=== PATIENT | female | born 1935 | race Caucasian/White ===

== ENCOUNTER 2017-03-22 16:00 | Inpatient (IN) | payer MEDICARE, MEDICAID ==
[2017-03-22 16:54] LABS: CHLORIDE,CL 106 mmol/L (98-107); SODIUM,NA 143 mmol/L (136-145)
--- NOTE | 2017-03-22 17:10 | EDM.PDOC ---
ED HPI GENERAL MEDICAL PROBLEM - General Chief Complaint: Neuro Symptoms/Deficits Stated Complaint: SROKE CODE Time Seen by Provider: 03/22/17 16:14 Source of Information: Reports: Patient History Limitations: Reports: Other (very poor with history, vague. ) - History of Present Illness INITIAL COMMENTS - FREE TEXT/NARRATIVE: Patient brought in by son via private vehicle with complaint of weakness in right arm. Denies any pain, in chest/arm/shoulder. No SOB. No sweating. No recent trauma or illness. Says her arm "doesn't move like I want it to move". When asked if she had any other weakness, she mentioned her legs. Initially she said that weakness was equal in both legs and was not new. She said this was long standing problem. Her son said that the leg weakness has gradually worsened and that his mother walks around the house looking like she might tip over. She denies this and says she walks a lot every day and she walks fine. Later when asked if she had specific weakness in the right leg she said "yes". I then asked about the other leg and she said that it was weak too. Patient very vague and nonspecific with answers during history and ROS. She said she has been to see her primary Henri Avila recently and he gave her pain medication for back pain. She seemed to link her leg weakness with the back issue. Could not recall any of her medications. No headache or visual changes. No history of stroke or arm weakness prior to this. - Related Data Home Meds: Home Meds Aspirin [Halfprin] 81 mg PO BRK 03/22/17 [History] Atenolol 50 mg PO BID 03/22/17 [History] Felodipine [Felodipine ER] 5 mg PO BEDTIME 03/22/17 [History] Furosemide [Lasix] 20 mg PO DAILY 03/22/17 [History] Pantoprazole [ProTONIX] 40 mg PO DAILY 03/22/17 [History] Quinapril HCl [Accupril] 40 mg PO DAILY 03/22/17 [History] atorvaSTATin [Lipitor] 10 mg PO BEDTIME 03/22/17 [History] cloNIDine [Catapres] 0.1 mg PO BEDTIME 03/22/17 [History] cloNIDine [Catapres] 0.1 mg PO DAILY 03/22/17 [History] ED ROS GENERAL - Review of Systems Review Of Systems: See Below Constitutional: Reports: No Symptoms HEENT: Reports: No Symptoms Respiratory: Reports: No Symptoms Cardiovascular: Reports: No Symptoms GI/Abdominal: Reports: No Symptoms : Reports: No Symptoms Musculoskeletal: Reports: Other (No acute changes from baseline) Skin: Reports: No Symptoms Neurological: Reports: Weakness (see HPI), Other (see HPI for chronic issues with walking). Denies: Confusion, Dizziness, Headache, Numbness, Paresthesia, Trouble Speaking, Change in Speech Psychiatric: Reports: No Symptoms ED EXAM, NEURO - Physical Exam Exam: See Below Exam Limited By: No Limitations General Appearance: Alert, WD/WN, No Apparent Distress Eye Exam: Bilateral Eye: EOMI, PERRL Ears: Normal External Exam, Other (Excess cerumen bilaterally noted. Hard to fully visualize TMs. ) Nose: No: Nasal Swelling, Nasal Drainage Throat/Mouth: Normal Inspection, Normal Lips, Normal Voice, No Airway Compromise Head Exam: Atraumatic, Normocephalic Neck: Normal Inspection, Supple, Non-Tender, Full Range of Motion Respiratory/Chest: No Respiratory Distress, Lungs Clear, Normal Breath Sounds, No Accessory Muscle Use Cardiovascular: Normal Peripheral Pulses, Regular Rate, Rhythm, No Murmur GI/Abdominal: Normal Bowel Sounds, Soft, Non-Tender, No Distention (Female) Exam: Deferred Rectal (Female) Exam: Deferred Neurological: Alert, Normal Mood/Affect, Normal Dorsiflexion, CN II-XII Intact, Normal Plantar Flexion, No Motor/Sensory Deficits, Oriented x 3, Other (Unable to check reflexes accurately as patient would not relax limbs and instead would always hold them out straight with muscle activation) Back Exam: Normal Inspection Extremities: Normal Range of Motion, Non-Tender, Normal Capillary Refill, Other (trace edema bilateral ankles. ) Psychiatric: Normal Affect, Normal Mood Skin Exam: Warm, Dry, Intact, Normal Color Comments: No sign of one-sided weakness noted during exam. EKG INTERPRETATION EKG Date: 03/22/17 Time: 16:22 Rhythm: NSR Rate (Beats/Min): 64 [place]: Normal P-Wave: Present QRS: LBBB ST-T: Normal QT: Normal Comparison: NA - No Prior EKG Course - Orders/Labs/Meds Orders: Active Orders 24 hr Category Date Time Status EKG Documentation Completion [RC] ASDIRECTED Care 03/22/17 16:16 Active Chest 1V Frontal [CR] Stat Exams 03/22/17 16:15 Ordered Head wo Cont [CT] Stat Exams 03/22/17 16:17 Taken PROLACTIN [REF] Stat Lab 03/22/17 16:00 Received Sodium Chloride 0.9% [Saline Flush] Med 03/22/17 16:15 Active 10 ml FLUSH ASDIRECTED PRN Saline Lock Insert [OM.PC] Stat Oth 03/22/17 16:15 Ordered Medication Orders Sodium Chloride (Saline Flush) 10 ml FLUSH ASDIRECTED PRN PRN Reason: Keep Vein Open Labs: Laboratory Tests 03/22/17 03/22/17 03/22/17 Range/Units 16:00 16:00 16:00 WBC 5.8 (4.0-10.2) K/uL RBC 4.83 (3.77-5.09) M/uL Hgb 14.7 (11.7-15.5) g/dL Hct 45.8 (34.0-46.0) % MCV 94.8 (84.0-98.0) fL MCH 30.4 (28.2-33.3) pg MCHC 32.1 (31.7-36.0) g/dL RDW 14.6 H (11.2-14.1) % Plt Count 208 (150-350) K/uL Neut % (Auto) 62.7 (45.0-80.0) % Lymph % (Auto) 23.2 (10.0-50.0) % Blaine % (Auto) 9.8 (2.0-14.0) % Eos % (Auto) 2.9 (0.0-5.0) % Baso % (Auto) 1.4 (0.0-2.0) % Neut # (Auto) 3.66 (1.40-7.00) K/uL Lymph # (Auto) 1.35 (0.50-3.50) K/uL Blaine # (Auto) 0.57 (0.00-1.00) K/uL Eos # (Auto) 0.17 (0.00-0.50) K/uL Baso # (Auto) 0.08 (0.00-0.20) K/uL PT 12.5 H (9.8-11.7) SEC INR 1.2 APTT (23.5-30.0) SEC D-Dimer, Quantitative (0-400) ng/mL Sodium 143 (136-145) mmol/L Potassium 3.9 (3.5-5.1) mmol/L Chloride 106 (98-107) mmol/L Carbon Dioxide 30.2 (21.0-32.0) mmol/L BUN 14 (7-18) mg/dL Creatinine 0.92 (0.51-1.17) mg/dL Est Cr Clr Drug Dosing TNP Estimated GFR (MDRD) 58 mL/min Glucose 102 (74-106) mg/dL Calcium 8.3 L (8.5-10.1) mg/dL Magnesium (1.8-2.4) mg/dL Total Bilirubin 0.8 (0.2-1.0) mg/dL AST 18 (15-37) U/L ALT 17 (12-78) U/L Alkaline Phosphatase 93 (46-116) IU/L Creatine Kinase 55 (26-308) U/L Creatine Kinase Index 1.1 (0.0-2.5) % CK-MB (CK-2) 0.60 (0.00-3.60) ng/mL Troponin I 0.011 (0.000-0.056) ng/mL Kny-Q-Vrnkjynrber Pept 594 H (0-125) pg/mL Total Protein 7.1 (6.4-8.2) g/dL Albumin 3.8 (3.4-5.0) g/dL Specimen Type Urine Color Urine Appearance Urine pH (5.0-9.0) Ur Specific [place] (1.005-1.030) Urine Protein (NEGATIVE) mg/dL Urine Glucose (UA) (NEGATIVE) mg/dL Urine Ketones (NEGATIVE) mg/dL Urine Occult Blood (NEGATIVE) Urine Nitrite (NEGATIVE) Urine Bilirubin (NEGATIVE) Urine Urobilinogen (0.2-1.0) E.U./dL Ur Leukocyte Esterase (NEGATIVE) Urine RBC /HPF Urine WBC /HPF Ur Epithelial Cells /LPF Urine Bacteria (NONE TO FEW) /HPF 03/22/17 03/22/17 03/22/17 Range/Units 16:00 16:00 16:00 WBC (4.0-10.2) K/uL RBC (3.77-5.09) M/uL Hgb (11.7-15.5) g/dL Hct (34.0-46.0) % MCV (84.0-98.0) fL MCH (28.2-33.3) pg MCHC (31.7-36.0) g/dL RDW (11.2-14.1) % Plt Count (150-350) K/uL Neut % (Auto) (45.0-80.0) % Lymph % (Auto) (10.0-50.0) % Blaine % (Auto) (2.0-14.0) % Eos % (Auto) (0.0-5.0) % Baso % (Auto) (0.0-2.0) % Neut # (Auto) (1.40-7.00) K/uL Lymph # (Auto) (0.50-3.50) K/uL Blaine # (Auto) (0.00-1.00) K/uL Eos # (Auto) (0.00-0.50) K/uL Baso # (Auto) (0.00-0.20) K/uL PT (9.8-11.7) SEC INR APTT 26.1 (23.5-30.0) SEC D-Dimer, Quantitative 473 H (0-400) ng/mL Sodium (136-145) mmol/L Potassium (3.5-5.1) mmol/L Chloride (98-107) mmol/L Carbon Dioxide (21.0-32.0) mmol/L BUN (7-18) mg/dL Creatinine (0.51-1.17) mg/dL Est Cr Clr Drug Dosing Estimated GFR (MDRD) mL/min Glucose (74-106) mg/dL Calcium (8.5-10.1) mg/dL Magnesium 1.9 (1.8-2.4) mg/dL Total Bilirubin (0.2-1.0) mg/dL AST (15-37) U/L ALT (12-78) U/L Alkaline Phosphatase (46-116) IU/L Creatine Kinase (26-308) U/L Creatine Kinase Index (0.0-2.5) % CK-MB (CK-2) (0.00-3.60) ng/mL Troponin I (0.000-0.056) ng/mL Nam-W-Fmgowumydlx Pept (0-125) pg/mL Total Protein (6.4-8.2) g/dL Albumin (3.4-5.0) g/dL Specimen Type Urine Color Urine Appearance Urine pH (5.0-9.0) Ur Specific [place] (1.005-1.030) Urine Protein (NEGATIVE) mg/dL Urine Glucose (UA) (NEGATIVE) mg/dL Urine Ketones (NEGATIVE) mg/dL Urine Occult Blood (NEGATIVE) Urine Nitrite (NEGATIVE) Urine Bilirubin (NEGATIVE) Urine Urobilinogen (0.2-1.0) E.U./dL Ur Leukocyte Esterase (NEGATIVE) Urine RBC /HPF Urine WBC /HPF Ur Epithelial Cells /LPF Urine Bacteria (NONE TO FEW) /HPF 03/22/17 Range/Units 16:43 WBC (4.0-10.2) K/uL RBC (3.77-5.09) M/uL Hgb (11.7-15.5) g/dL Hct (34.0-46.0) % MCV (84.0-98.0) fL MCH (28.2-33.3) pg MCHC (31.7-36.0) g/dL RDW (11.2-14.1) % Plt Count (150-350) K/uL Neut % (Auto) (45.0-80.0) % Lymph % (Auto) (10.0-50.0) % Blaine % (Auto) (2.0-14.0) % Eos % (Auto) (0.0-5.0) % Baso % (Auto) (0.0-2.0) % Neut # (Auto) (1.40-7.00) K/uL Lymph # (Auto) (0.50-3.50) K/uL Blaine # (Auto) (0.00-1.00) K/uL Eos # (Auto) (0.00-0.50) K/uL Baso # (Auto) (0.00-0.20) K/uL PT (9.8-11.7) SEC INR APTT (23.5-30.0) SEC D-Dimer, Quantitative (0-400) ng/mL Sodium (136-145) mmol/L Potassium (3.5-5.1) mmol/L Chloride (98-107) mmol/L Carbon Dioxide (21.0-32.0) mmol/L BUN (7-18) mg/dL Creatinine (0.51-1.17) mg/dL Est Cr Clr Drug Dosing Estimated GFR (MDRD) mL/min Glucose (74-106) mg/dL Calcium (8.5-10.1) mg/dL Magnesium (1.8-2.4) mg/dL Total Bilirubin (0.2-1.0) mg/dL AST (15-37) U/L ALT (12-78) U/L Alkaline Phosphatase (46-116) IU/L Creatine Kinase (26-308) U/L Creatine Kinase Index (0.0-2.5) % CK-MB (CK-2) (0.00-3.60) ng/mL Troponin I (0.000-0.056) ng/mL Jfs-Q-Vwzzgkovvmg Pept (0-125) pg/mL Total Protein (6.4-8.2) g/dL Albumin (3.4-5.0) g/dL Specimen Type Urinblad Urine Color Yellow Urine Appearance Clear Urine pH 7.0 (5.0-9.0) Ur Specific [place] 1.010 (1.005-1.030) Urine Protein Negative (NEGATIVE) mg/dL Urine Glucose (UA) Negative (NEGATIVE) mg/dL Urine Ketones Negative (NEGATIVE) mg/dL Urine Occult Blood Trace-intact H (NEGATIVE) Urine Nitrite Negative (NEGATIVE) Urine Bilirubin Negative (NEGATIVE) Urine Urobilinogen 0.2 (0.2-1.0) E.U./dL Ur Leukocyte Esterase Negative (NEGATIVE) Urine RBC 0-5 /HPF Urine WBC 0-5 /HPF Ur Epithelial Cells Rare /LPF Urine Bacteria Rare (NONE TO FEW) /HPF Meds: Medications Generic Name Dose Route Start Last Admin Trade Name Freq PRN Reason Stop Dose Admin Sodium Chloride 10 ml 03/22/17 16:15 Saline Flush FLUSH ASDIRECTED PRN Keep Vein Open - Radiology Interpretation Free Text/Narrative:: CT of head read by radiology and no acute changes noted. Small vessel changes/ disease observed. Chest film showed increased cardiac size, no acute infiltrates noted, no pneumo - Re-Assessments/Exams Free Text/Narrative Re-Assessment/Exam: 03/22/17 17:58 No focal neurologic findings noted on exam. Patient had been noted to have elevated systolic BP upon arrival. This improved relatively rapidly on its own. Patient also said her right arm was feeling better. There may be a connection to the BP and patient complaint. Son brought patient's meds to the ER. Patient did not wish to stay. She was highly encouraged to stay for continued monitoring for BP and any additional changes as well as neuro checks. Given the disparity between how she says she is able to move around and get along well at home versus her son's concerns for her ambulation, this will also give us a chance to observe her level of function. PT and OT consults as well as case management consult are planned. For now patient is in agreement although she has threatened to leave the hospital tomorrow. Son is also in agreement. Departure - Departure Time of Disposition: 17:09 Disposition: Admitted As Inpatient 66 Condition: Good Clinical Impression: Hypertensive urgency, Right arm weakness - Discharge Information - Problem List & Annotations (1) Osteoarthritis SNOMED Code(s): 819753574 Code(s): M19.90 - UNSPECIFIED OSTEOARTHRITIS, UNSPECIFIED SITE Status: Chronic Priority: Low Current Visit: No (2) Hypertension SNOMED Code(s): 98775200 Code(s): I10 - ESSENTIAL (PRIMARY) HYPERTENSION Status: Chronic Priority : High Current Visit: Yes Annotation/Comment:: Suspect that elevated systolic blood pressure may have been cause for patient's arm complaint. Will monitor BP trend while inpatient. Qualifiers: Hypertension type: unspecified Qualified Code(s): I10 - Essential (primary ) hypertension (3) Hypertensive urgency SNOMED Code(s): 418656248 Code(s): I16.0 - HYPERTENSIVE URGENCY Status: Acute Priority: High Current Visit: Yes (4) Right arm weakness SNOMED Code(s): 598823577 Code(s): R29.898 - [facility] SYMPTOMS AND SIGNS INVOLVING THE MUSCULOSKELETAL SYSTEM Status: Acute Priority: High Current Visit: Yes Onset Date: 03/22 Annotation/Comment:: Complaint of right arm weakness. Currently improved. Specific cause unclear. (5) GERD (gastroesophageal reflux disease) SNOMED Code(s): 589581089 Code(s): K21.9 - GASTRO-ESOPHAGEAL REFLUX DISEASE WITHOUT ESOPHAGITIS Status: Acute Priority: Low Current Visit: No (6) Dyslipidemia SNOMED Code(s): 180279046 Code(s): E78.5 - HYPERLIPIDEMIA, UNSPECIFIED Status: Chronic Priority: Low Current Visit: No (7) Lower extremity weakness SNOMED Code(s): 401434802 Code(s): R29.898 - OTH SYMPTOMS AND SIGNS INVOLVING THE MUSCULOSKELETAL SYSTEM Status: Chronic Priority: Medium Current Visit: Yes Annotation/ Comment:: Long standing issue per patient, overall worsening per son. Qualifiers: Laterality: bilateral Qualified Code(s): R29.898 - Other symptoms and signs involving the musculoskeletal system - Problem List Review Problem List Initiated/Reviewed/Updated: Yes - My Orders Last 24 Hours: My Active Orders 03/22/17 16:00 PROLACTIN [REF] Stat 03/22/17 16:15 Chest 1V Frontal [CR] Stat Sodium Chloride 0.9% [Saline Flush] 10 ml FLUSH ASDIRECTED PRN Saline Lock Insert [OM.PC] Stat 03/22/17 16:16 EKG Documentation Completion [RC] ASDIRECTED 03/22/17 16:17 Head wo Cont [CT] Stat - Assessment/Plan Admission H&P: Please use this note as an admission H&P Last 24 Hours: My Active Orders 03/22/17 16:00 PROLACTIN [REF] Stat 03/22/17 16:15 Chest 1V Frontal [CR] Stat Sodium Chloride 0.9% [Saline Flush] 10 ml FLUSH ASDIRECTED PRN Saline Lock Insert [OM.PC] Stat 03/22/17 16:16 EKG Documentation Completion [RC] ASDIRECTED 03/22/17 16:17 Head wo Cont [CT] Stat Assessment:: Complaint of right arm weakness, worsening bilateral lower extremity weakness. Hypertensive urgency noted in ER. Unremarkable head CT. Lab workup overall unremarkable. Low suspicion for stroke at this time but may need MRI evaluation. Weakness complaint improved as BP improved. Plan: Patient admitted for monitoring of BP as well as continued neuro checks. Will attempt to encourage her stay several days in order to have PT and OT evaluation patient's mobility and make recommendations as needed. Anticipate 2- 3 days inpatient stay.
[2017-03-22] MEDS ORDERED: Acetaminophen 325 MG Tab PO PRN (18:15)
[2017-03-22] MEDS: cloNIDine 0.1 MG Tab PO SCH (19:45)
[2017-03-22] MEDS: atorvaSTATin 10 MG Tab PO SCH (19:45)
[2017-03-22] MEDS: Aspirin 81 MG Tab.EC PO SCH (19:45)
[2017-03-22] MEDS: Atenolol 50 MG Tab PO ONE ×2 (19:46→19:55)
[2017-03-23] MEDS: Furosemide 20 MG Tab PO SCH (08:15)
[2017-03-23] MEDS: cloNIDine 0.1 MG Tab PO SCH ×2 (08:15→19:35)
[2017-03-23] MEDS: Aspirin 81 MG Tab.EC PO SCH (08:15)
[2017-03-23] MEDS: Pantoprazole 40 MG Tab.CR PO SCH (08:15)
[2017-03-23] MEDS: Atenolol 50 MG Tab PO SCH ×2 (09:51→17:43)
--- NOTE | 2017-03-23 10:37 | PCM.PN ---
- General Info Date of Service: 03/23/17 Admission Dx/Problem (Free Text): Right arm weakness. Increased weakness of both legs. Subjective Update: Patient has not felt recurrence of right arm weakness. Feels that her legs are stronger today. Expresses interest in going home. Functional Status: Reports: Pain Controlled, Tolerating Diet, Ambulating, Urinating. Denies: New Symptoms - Review of Systems General: Reports: No Symptoms HEENT: Reports: No Symptoms Pulmonary: Reports: No Symptoms Cardiovascular: Reports: No Symptoms Gastrointestinal: Reports: No Symptoms Genitourinary: Reports: No Symptoms Musculoskeletal: Reports: No Symptoms Skin: Reports: No Symptoms Neurological: Reports: No Symptoms Psychiatric: Reports: No Symptoms - Patient Data Vitals - Most Recent: Last Vital Signs Temp 36.6 C 03/23/17 08:00 Pulse 58 L 03/23/17 08:00 Resp 17 03/23/17 08:00 BP 165/71 H 03/23/17 08:16 Pulse Ox 95 03/23/17 00:00 Weight - Most Recent: 69.4 kg I&O - Last 24 Hours: Intake & Output 03/22/17 03/23/17 03/23/17 22:59 06:59 14:59 Intake Total 120 240 Output Total 500 200 Balance -380 -200 240 Med Orders - Current: Current Medications Acetaminophen (Tylenol) 650 mg PO Q4H PRN PRN Reason: analgesia/fever Aspirin (Halfprin) 81 mg PO BRK [facility] Last Admin: 03/23/17 08:15 Dose: 81 mg Atenolol (Tenormin) 50 mg PO BID@0800,1830 [facility] Last Admin: 03/23/17 09:51 Dose: Not Given Atorvastatin Calcium (Lipitor) 10 mg PO BEDTIME [facility] Last Admin: 03/22/17 19:45 Dose: 10 mg Clonidine HCl (Catapres) 0.1 mg PO BEDTIME [facility] Last Admin: 03/22/17 19:45 Dose: 0.1 mg Clonidine HCl (Catapres) 0.1 mg PO DAILY [facility] Last Admin: 03/23/17 08:15 Dose: 0.1 mg Felodipine (Felodipine Er) 5 mg PO BEDTIME [facility] Last Admin: 03/22/17 19:46 Dose: 5 mg Furosemide (Lasix) 20 mg PO DAILY [facility] Last Admin: 03/23/17 08:15 Dose: 20 mg Pantoprazole Sodium (Protonix) 40 mg PO ACBREAKFAST [facility] Last Admin: 03/23/17 08:15 Dose: 40 mg Quinapril HCl (Accupril) 40 mg PO DAILY [facility] Last Admin: 03/23/17 08:16 Dose: 40 mg Sodium Chloride (Saline Flush) 10 ml FLUSH ASDIRECTED PRN PRN Reason: Keep Vein Open Discontinued Medications Atenolol (Tenormin) 50 mg PO ONETIME ONE Stop: 03/22/17 18:50 Last Admin: 03/22/17 19:55 Dose: 50 mg - Exam Quality Assessment: Supplemental Oxygen (Patient was on O2 overnight. She removed that this morning and no longer wishes to wear it. Room air sats 94%) General: Alert, Oriented, Cooperative, No Acute Distress HEENT: Pupils Equal, Pupils Reactive, EOMI, Mucous Membr. Moist/[place] Neck: Supple Lungs: Clear to Auscultation, Normal Respiratory Effort Cardiovascular: Regular Rate, Regular Rhythm GI/Abdominal Exam: Normal Bowel Sounds, Soft, Non-Tender, No Distention (Female) Exam: Deferred Back Exam: Normal Inspection. No: CVA Tenderness (L), CVA Tenderness (R) Extremities: Normal Inspection, Normal Range of Motion, Non-Tender, No Pedal Edema, Normal Capillary Refill Peripheral Pulses: 2+: Radial (L), Radial (R) Skin: Warm, Dry, Intact Neurological: No New Focal Deficit Psy/Mental Status: Alert, Normal Affect, Normal Mood - Problem List & Annotations (1) Osteoarthritis SNOMED Code(s): 454575476 Code(s): M19.90 - UNSPECIFIED OSTEOARTHRITIS, UNSPECIFIED SITE Status: Chronic Priority: Low Current Visit: No (2) Hypertension SNOMED Code(s): 56765631 Code(s): I10 - ESSENTIAL (PRIMARY) HYPERTENSION Status: Chronic Priority : High Current Visit: Yes Qualifiers: Hypertension type: unspecified Qualified Code(s): I10 - Essential (primary ) hypertension Annotation/Comment:: Suspect that elevated systolic blood pressure may have been cause for patient's arm complaint. BP overall remains improved when compared to initial readings obtained in ER. Will continue to monitor. (3) Hypertensive urgency SNOMED Code(s): 650332406 Code(s): I16.0 - HYPERTENSIVE URGENCY Status: Acute Priority: High Current Visit: Yes (4) Right arm weakness SNOMED Code(s): 771803185 Code(s): R29.898 - OTH SYMPTOMS AND SIGNS INVOLVING THE MUSCULOSKELETAL SYSTEM Status: Acute Priority: High Current Visit: Yes Onset Date: 03/22 Annotation/Comment:: Complaint of right arm weakness. Currently improved. Specific cause unclear. (5) GERD (gastroesophageal reflux disease) SNOMED Code(s): 725764934 Code(s): K21.9 - GASTRO-ESOPHAGEAL REFLUX DISEASE WITHOUT ESOPHAGITIS Status: Acute Priority: Low Current Visit: No Qualifiers: Esophagitis presence: esophagitis presence not specified Qualified Code(s) : K21.9 - Gastro-esophageal reflux disease without esophagitis (6) Dyslipidemia SNOMED Code(s): 691122596 Code(s): E78.5 - HYPERLIPIDEMIA, UNSPECIFIED Status: Chronic Priority: Low Current Visit: No (7) Lower extremity weakness SNOMED Code(s): 349715447 Code(s): R29.898 - OT SYMPTOMS AND SIGNS INVOLVING THE MUSCULOSKELETAL SYSTEM Status: Chronic Priority: Medium Current Visit: Yes Qualifiers: Laterality: bilateral Qualified Code(s): R29.898 - Other symptoms and signs involving the musculoskeletal system Annotation/Comment:: Long standing issue per patient, overall worsening per son. - Problem List Review Problem List Initiated/Reviewed/Updated: Yes - My Orders Last 24 Hours: My Active Orders 03/22/17 18:15 Patient Status [ADT] Routine Ambulate [RC] ASDIRECTED May Shower [RC] ASDIRECTED Up With Assistance [RC] ASDIRECTED Vital Signs [RC] Q4HR Acetaminophen [Tylenol] 650 mg PO Q4H PRN DVT/VTE Prophylaxis Reflex [OM.PC] Routine Resuscitation Status Routine 03/22/17 18:16 Oxygen Therapy [RC] 23 Pulse Oximetry [RC] PRN 03/22/17 18:17 Antiembolic Devices [RC] .Routine VTE/DVT Education [RC] PER UNIT ROUTINE 03/22/17 18:18 Neuro Check [RC] Q6HR Antiembolic Hose [OM.PC] Per Unit Routine 03/22/17 18:19 OT Evaluation and Treatment [CONS] Routine PT Evaluation and Treatment [CONS] Routine 03/22/17 18:30 Aspirin [Halfprin] 81 mg PO BRK 03/22/17 20:00 Felodipine [Felodipine ER] 5 mg PO BEDTIME atorvaSTATin [Lipitor] 10 mg PO BEDTIME cloNIDine [Catapres] 0.1 mg PO BEDTIME 03/23/17 07:30 Pantoprazole [ProTONIX] 40 mg PO ACBREAKFAST 03/23/17 08:00 Atenolol [Tenormin] 50 mg PO BID@0800,1830 Furosemide [Lasix] 20 mg PO DAILY Quinapril [Accupril] 40 mg PO DAILY cloNIDine [Catapres] 0.1 mg PO DAILY 03/23/17 Breakfast Regular Diet [DIET] - Assessment Assessment:: As above. Right arm weakness. Resolved. No recurrence. HTN with recent systolic elevation over 200. Currently improved. Mildly elevated DDimer. Mild elevation BNP. Complaint of problems with ambulation and chronic lower extremity weakness. May be due to combination of deconditioning and arthritis. - Plan Plan:: Continue to monitor BP trends and observe for recurrence of arm complaint if systolic elevation is again noted. Family would like patient to be evaluated by PT and OT tomorrow and are interested in recommendations for improved mobility and strengthening. Repeat labs, including DDimer. Patient is not interested in home health at this time. She is very independent and wants to maintain her independence. Anticipate an additional day or two of inpatient care depending on how well PT/ OT goes tomorrow and if BP remains under better control.
--- NOTE | 2017-03-23 10:53 | PCM.SN ---
- Free Text/Narrative Note: Discussed DVT risk with patient as well as risk/benefit of Lovenox. Patient refuses Lovenox and says she will ambulate instead.
[2017-03-23] MEDS: atorvaSTATin 10 MG Tab PO SCH (19:35)
[2017-03-24 07:26] LABS: CHLORIDE,CL 106 mmol/L (98-107); SODIUM,NA 143 mmol/L (136-145)
[2017-03-24] MEDS: Pantoprazole 40 MG Tab.CR PO SCH (07:27)
[2017-03-24] MEDS: cloNIDine 0.1 MG Tab PO SCH ×2 (07:28→20:32)
[2017-03-24] MEDS: Aspirin 81 MG Tab.EC PO SCH (07:28)
[2017-03-24] MEDS: Furosemide 20 MG Tab PO SCH (07:28)
[2017-03-24] MEDS: Atenolol 50 MG Tab PO SCH ×2 (07:29→17:42)
--- NOTE | 2017-03-24 09:58 | PCM.PN ---
- General Info Date of Service: 03/24/17 Admission Dx/Problem (Free Text): 1. CVA versus TIA with brief right arm weakness 2. Hypertension 3. D-dimer elevation 4. CHF Functional Status: Reports: Pain Controlled, Tolerating Diet, Ambulating, Urinating. Denies: New Symptoms, Incentive Spirometry Pain Score: 0 - Review of Systems General: Reports: No Symptoms. Denies: Fever, Weakness, Fatigue, Malaise, Chills, Night Sweats, Appetite (Tolerating diet) HEENT: Reports: No Symptoms. Denies: Ear Pain, Eye Pain, Headaches, Post Nasal Drip, Sinus Congestion, Sore Throat, Rhinitis, Visual Changes Pulmonary: Reports: No Symptoms. Denies: Shortness of Breath, Pleuritic Chest Pain, Cough, Sputum, Wheezing, Other Cardiovascular: Reports: Edema (Stable mild dependent). Denies: Chest Pain, Palpitations, Dyspnea on Exertion, Orthopnea, Lightheadedness Gastrointestinal: Reports: No Symptoms, Other (Normal bowel movement earlier today by her history). Denies: Abdominal Pain, Constipation, Decreased Appetite , Diarrhea, Difficulty Swallowing, Flatus, Hematochezia, Melena, Nausea, Vomiting Genitourinary: Reports: No Symptoms. Denies: Dysuria, Frequency, Burning, Pain , Urgency, Incontinence, Hematuria, Retention, Flank Pain Musculoskeletal: Reports: No Symptoms. Denies: Neck Pain, Shoulder Pain, Arm Pain, Leg Pain Skin: Reports: No Symptoms. Denies: Diaphoresis, Bruising Neurological: Reports: No Symptoms. Denies: Confusion, Dizziness, Headache, Paresthesia, Seizure, Tingling, Difficulty Walking, Weakness Psychiatric: Reports: No Symptoms. Denies: Confusion, Depression, Anxiety, Agitation, Hallucinations - Patient Data Vitals - Most Recent: Last Vital Signs Temp 36.5 C 03/24/17 07:30 Pulse 68 03/24/17 07:30 Resp 18 03/24/17 07:30 BP 144/71 H 03/24/17 07:30 Pulse Ox 95 03/24/17 07:30 Vital Signs - 24 hr 03/23/17 03/23/17 03/23/17 12:00 16:00 17:43 Temperature [ 36.7 C Oral] Temperature [ 36.7 C Temporal] Pulse, 53 L Peripheral Pulse, 59 L 53 L Peripheral [ Right Pulse Oximetry] Respiratory 17 16 Rate Blood Pressure Blood Pressure 153/56 H [Left Upper Arm ] Blood Pressure 150/75 H [Right Upper Arm] O2 Sat by Pulse 90 L 97 Oximetry 03/23/17 03/23/17 03/24/17 19:35 20:00 07:27 Temperature [ Oral] Temperature [ 36.7 C Temporal] Pulse, Peripheral Pulse, 56 L Peripheral [ Right Pulse Oximetry] Respiratory 18 Rate Blood Pressure 184/60 H 144/71 H Blood Pressure 184/60 H [Left Upper Arm ] Blood Pressure [Right Upper Arm] O2 Sat by Pulse 97 Oximetry 03/24/17 03/24/17 03/24/17 07:28 07:29 07:30 Temperature [ Oral] Temperature [ 36.5 C Temporal] Pulse, 68 Peripheral Pulse, 68 Peripheral [ Right Pulse Oximetry] Respiratory 18 Rate Blood Pressure 144/71 H 144/71 H Blood Pressure 144/71 H [Left Upper Arm ] Blood Pressure [Right Upper Arm] O2 Sat by Pulse 95 Oximetry O2 sat on room air at rest 92% with desaturation to 85% on room air while walking this morning Weight - Most Recent: 69.4 kg I&O - Last 24 Hours: Intake & Output 03/23/17 03/24/17 03/24/17 22:59 06:59 14:59 Intake Total 120 Balance 120 Imaging Impressions - Last 24 Hours: radiation monitor shows mild sinus bradycardia with sinus rhythm in the low to high 50s. No ectopy or arrhythmia Lab Results Last 24 Hours: Laboratory Results - last 24 hr 03/24/17 03/24/17 03/24/17 Range/Units 06:50 06:55 06:55 WBC 5.3 (4.0-10.2) K/uL RBC 4.92 (3.77-5.09) M/uL Hgb 14.9 (11.7-15.5) g/dL Hct 46.6 H (34.0-46.0) % MCV 94.7 (84.0-98.0) fL MCH 30.3 (28.2-33.3) pg MCHC 32.0 (31.7-36.0) g/dL RDW 14.4 H (11.2-14.1) % Plt Count 173 (150-350) K/uL Neut % (Auto) 65.4 (45.0-80.0) % Lymph % (Auto) 21.7 (10.0-50.0) % [place] % (Auto) 9.4 (2.0-14.0) % Eos % (Auto) 2.4 (0.0-5.0) % Baso % (Auto) 1.1 (0.0-2.0) % Neut # (Auto) 3.49 (1.40-7.00) K/uL Lymph # (Auto) 1.16 (0.50-3.50) K/uL [place] # (Auto) 0.50 (0.00-1.00) K/uL Eos # (Auto) 0.13 (0.00-0.50) K/uL Baso # (Auto) 0.06 (0.00-0.20) K/uL D-Dimer, Quantitative 613 H (0-400) ng/mL Sodium 143 (136-145) mmol/L Potassium 4.1 (3.5-5.1) mmol/L Chloride 106 (98-107) mmol/L Carbon Dioxide 31.4 (21.0-32.0) mmol/L BUN 15 (7-18) mg/dL Creatinine 0.86 (0.51-1.17) mg/dL Est Cr Clr Drug Dosing 43.55 mL/min Estimated GFR (MDRD) > 60 mL/min Glucose 97 (74-106) mg/dL Calcium 8.4 L (8.5-10.1) mg/dL Total Bilirubin 0.9 (0.2-1.0) mg/dL AST 15 (15-37) U/L ALT 15 (12-78) U/L Alkaline Phosphatase 85 (46-116) IU/L Creatine Kinase (26-308) U/L Creatine Kinase Index (0.0-2.5) % CK-MB (CK-2) (0.00-3.60) ng/mL Troponin I (0.000-0.056) ng/mL Uxy-B-Icodcjblsvt Pept (0-125) pg/mL Total Protein 6.7 (6.4-8.2) g/dL Albumin 3.4 (3.4-5.0) g/dL 03/24/17 Range/Units 06:55 WBC (4.0-10.2) K/uL RBC (3.77-5.09) M/uL Hgb (11.7-15.5) g/dL Hct (34.0-46.0) % MCV (84.0-98.0) fL MCH (28.2-33.3) pg MCHC (31.7-36.0) g/dL RDW (11.2-14.1) % Plt Count (150-350) K/uL Neut % (Auto) (45.0-80.0) % Lymph % (Auto) (10.0-50.0) % [place] % (Auto) (2.0-14.0) % Eos % (Auto) (0.0-5.0) % Baso % (Auto) (0.0-2.0) % Neut # (Auto) (1.40-7.00) K/uL Lymph # (Auto) (0.50-3.50) K/uL [place] # (Auto) (0.00-1.00) K/uL Eos # (Auto) (0.00-0.50) K/uL Baso # (Auto) (0.00-0.20) K/uL D-Dimer, Quantitative (0-400) ng/mL Sodium (136-145) mmol/L Potassium (3.5-5.1) mmol/L Chloride (98-107) mmol/L Carbon Dioxide (21.0-32.0) mmol/L BUN (7-18) mg/dL Creatinine (0.51-1.17) mg/dL Est Cr Clr Drug Dosing mL/min Estimated GFR (MDRD) mL/min Glucose (74-106) mg/dL Calcium (8.5-10.1) mg/dL Total Bilirubin (0.2-1.0) mg/dL AST (15-37) U/L ALT (12-78) U/L Alkaline Phosphatase (46-116) IU/L Creatine Kinase 57 (26-308) U/L Creatine Kinase Index 0.9 (0.0-2.5) % CK-MB (CK-2) 0.50 (0.00-3.60) ng/mL Troponin I 0.017 (0.000-0.056) ng/mL Ley-V-Lqkyysxtoyb Pept 520 H (0-125) pg/mL Total Protein (6.4-8.2) g/dL Albumin (3.4-5.0) g/dL Med Orders - Current: Current Medications Acetaminophen (Tylenol) 650 mg PO Q4H PRN PRN Reason: analgesia/fever Aspirin (Halfprin) 81 mg PO BRK [facility] Last Admin: 03/24/17 07:28 Dose: 81 mg Atenolol (Tenormin) 50 mg PO BID@0800,1830 [facility] Last Admin: 03/24/17 07:29 Dose: 50 mg Atorvastatin Calcium (Lipitor) 10 mg PO BEDTIME [facility] Last Admin: 03/23/17 19:35 Dose: 10 mg Clonidine HCl (Catapres) 0.1 mg PO BEDTIME [facility] Last Admin: 03/23/17 19:35 Dose: 0.1 mg Clonidine HCl (Catapres) 0.1 mg PO DAILY [facility] Last Admin: 03/24/17 07:28 Dose: 0.1 mg Felodipine (Felodipine Er) 5 mg PO BEDTIME [facility] Last Admin: 03/23/17 19:35 Dose: 5 mg Furosemide (Lasix) 20 mg PO DAILY [facility] Last Admin: 03/24/17 07:28 Dose: 20 mg Furosemide (Lasix) 40 mg IVPUSH Q8H [facility] Pantoprazole Sodium (Protonix) 40 mg PO ACBREAKFAST [facility] Last Admin: 03/24/17 07:27 Dose: 40 mg Potassium Chloride (Klor-Con M20) 20 meq PO TID [facility]ANK Quinapril HCl (Accupril) 40 mg PO DAILY [facility] Last Admin: 03/24/17 07:27 Dose: 40 mg Sodium Chloride (Saline Flush) 10 ml FLUSH ASDIRECTED PRN PRN Reason: Keep Vein Open Discontinued Medications Atenolol (Tenormin) 50 mg PO ONETIME ONE Stop: 03/22/17 18:50 Last Admin: 03/22/17 19:55 Dose: 50 mg - Exam Quality Assessment: Supplemental Oxygen, DVT Prophylaxis. No: Central Line/PICC , Urine Catheter, Skin Breakdown, Restraints General: Alert, Oriented, Cooperative, No Acute Distress HEENT: Pupils Equal, Pupils Reactive, Mucous Membr. Moist/[place] Neck: Supple, Trachea Midline, No JVD, No Thyromegaly, Carotid Bruit (Bilateral carotid bruits). No: Lymphadenopathy Lungs: Normal Respiratory Effort, Rales (Mild bilateral basilar rales). No: Rhonchi, Rub, Wheezing Cardiovascular: Regular Rate, Regular Rhythm, No Murmurs. No: Gallops, Rubs GI/Abdominal Exam: Normal Bowel Sounds, Soft, Non-Tender, No Organomegaly, No Distention, No Abnormal Bruit, No Mass, Pelvis Stable. No: Guarding (Female) Exam: Deferred Back Exam: Normal Inspection, Full Range of Motion. No: CVA Tenderness (L), CVA Tenderness (R), Muscle Spasm Extremities: Normal Range of Motion, Non-Tender, Normal Capillary Refill, Pedal Edema (Trace +1 bilateral pedal/pretibial edema with PETER hose bilaterally). No : Tru's Sign Peripheral Pulses: 2+: Radial (L), Radial (R), Dorsalis Pedis (L), Dorsalis Pedis (R) Skin: Warm, Dry, Intact. No: Ecchymosis Neurological: No New Focal Deficit, Other (Negative Babinski's, finger to nose, and pronator rotation tests. No evidence of facial paresis, tongue deviation, orthostasis, etc.. Excellent reverse thought processes. No clinical orthostasis ) Psy/Mental Status: Alert, Normal Affect, Normal Mood. No: Depressed, Agitated, Hallucinations EKG INTERPRETATION EKG Date: 03/24/17 Time: 08:41 Rhythm: NSR Rate (Beats/Min): 63 [place]: Normal (Left cardiac axis with somewhat noisy baseline) P-Wave: Present (Mild diffuse biphasic P waves with extreme poor R-wave progression in the anterior leads) QRS: Other (QRS interval of 0.14 seconds representing a complete left bundle branch block/bifascicular bundle-branch block with progressive T-wave inversions in leads 1, 2, aVL, and V5 through V6 with nonspecific secondary ST changes) ST-T: Other (As above) QT: Normal AR/PQ Interval: 0.18 seconds Comparison: Change From Previous EKG (As above since last EKG on 03/22/17) EKG Interpretation Comments: 1. Progressive lateral wall cardiac ischemia 2. Left bundle branch block/complete bifascicular bundle-branch block - Problem List & Annotations (1) TIA (transient ischemic attack) SNOMED Code(s): 824116721, 978006384 Code(s): G45.9 - TRANSIENT CEREBRAL ISCHEMIC ATTACK, UNSPECIFIED Status: Acute Priority: High Current Visit: Yes Onset Date: ~03/22/17 Qualifiers: Transient cerebral ischemia type: unspecified Qualified Code(s): G45.9 - Transient cerebral ischemic attack, unspecified Annotation/Comment:: Possible TIA versus CVA prior to admission with no neurological deficits at that this time. Patient refused hospital transfer for recommended MRA/MRI of the head and carotid region. She also refuses recommended MRI of the head in this facility today, because she cannot tolerate this evaluation. Prolactin level is still pending. Further workup of possible TIA, including echocardiogram tomorrow and carotid artery Doppler studies in this facility today. Continue to observe neurological status closely (2) Coronary artery disease SNOMED Code(s): 99830791 Code(s): I25.10 - ATHSCL HEART DISEASE OF [place] CORONARY ARTERY W/O ANG PCTRS Status: Chronic Priority: High Current Visit: Yes Qualifiers: Coronary Disease-Associated Artery/Lesion type: [place] artery [place] vs. transplanted heart: [place] heart Associated angina: without angina Qualified Code(s): I25.10 - Atherosclerotic heart disease of [place] coronary artery without angina pectoris Annotation/Comment:: Progressive lateral wall cardiac ischemia by today's EKG with no recent chest pain or anginal type symptoms. Note mild persistent BNP elevation with secondary change in her troponin I. D-dimer is also elevated with otherwise normal cardiac enzymes. Some hypoxia with ambulation as above. Patient did refuse subcutaneous Lovenox therapy during this hospitalization. Consider Cardiolite stress test on an outpatient basis. Cardiology consultation depending on her clinical course. Patient initially refused further hospitalization today, however did eventually agree to further workup for her d- dimer elevation, hypoxia, etc. (3) Bifascicular bundle branch block SNOMED Code(s): 60683906 Code(s): I45.2 - BIFASCICULAR BLOCK Status: Chronic Priority: Medium Current Visit: Yes Annotation/Comment:: As above (4) D-dimer, elevated SNOMED Code(s): 761634763 Code(s): R79.89 - OTHER SPECIFIED ABNORMAL FINDINGS OF BLOOD CHEMISTRY Status: Acute Priority: High Current Visit: Yes Onset Date: 03/22/17 Annotation/Comment:: Further workup for D dimer elevation today including CTA of the chest and venous Doppler studies with some hypoxia with ambulation today. No other direct clinical evidence of PE or DVT, however. Additional cardiac workup as above for her recent TIA. Patient refuses Lovenox as above (5) CHF (congestive heart failure) SNOMED Code(s): 85459157 Code(s): I50.9 - HEART FAILURE, UNSPECIFIED Status: Chronic Priority: High Current Visit: Yes Onset Date: 03/22/17 Qualifiers: Congestive heart failure type: unspecified congestive heart failure type Congestive heart failure chronicity: acute Qualified Code(s): I50.9 - Heart failure, unspecified Annotation/Comment:: As above. Initiate IV Lasix therapy with patient already on an angiotensin II receptor oleg. Echocardiogram tomorrow as above. Patient placed on a fluid restriction and healthy diet today (6) Hypertension SNOMED Code(s): 18575922 Code(s): I10 - ESSENTIAL (PRIMARY) HYPERTENSION Status: Chronic Priority : Medium Current Visit: Yes Qualifiers: Hypertension type: essential hypertension Qualified Code(s): I10 - Essential (primary) hypertension Annotation/Comment:: Continue to observe closely with additional IV Lasix therapy as above (7) GERD (gastroesophageal reflux disease) SNOMED Code(s): 807225067 Code(s): K21.9 - GASTRO-ESOPHAGEAL REFLUX DISEASE WITHOUT ESOPHAGITIS Status: Chronic Priority: Medium Current Visit: No Qualifiers: Esophagitis presence: without esophagitis Qualified Code(s): K21.9 - Gastro -esophageal reflux disease without esophagitis Annotation/Comment:: Stable by history with patient currently on Protonix (8) Dyslipidemia SNOMED Code(s): 954954892 Code(s): E78.5 - HYPERLIPIDEMIA, UNSPECIFIED Status: Chronic Priority: Medium Current Visit: No Annotation/Comment:: Under therapy, lipid panel and glycosylated hemoglobin in the a.m. (9) Osteoarthritis SNOMED Code(s): 024538676 Code(s): M19.90 - UNSPECIFIED OSTEOARTHRITIS, UNSPECIFIED SITE Status: Chronic Priority: Medium Current Visit: No Qualifiers: Osteoarthritis location: multiple joints Osteoarthritis type: primary Qualified Code(s): M15.0 - Primary generalized (osteo)arthritis Annotation/Comment:: Stable by history, including chronic leg weakness - Problem List Review Problem List Initiated/Reviewed/Updated: Yes - My Orders Last 24 Hours: My Active Orders 03/24/17 08:29 EKG Documentation Completion [RC] ASDIRECTED EKG 12 Lead [EK] Stat 03/24/17 09:36 Chest PE [Ang Chest] [CT] Stat 03/24/17 09:37 CHF Questionnaire [COMM] Routine 03/24/17 09:40 Daily Weight [Height and Weight] [RC] DAILY Intake and Output Strict [RC] ASDIRECTED GM Immunization Reflex [OM.PC] Click To Edit 03/24/17 09:41 Oxygen Therapy [RC] ASDIRECTED OCCULT BLOOD DIAGNOSTIC [OP] Stat 03/24/17 09:43 Carotid Comp [US] Routine 03/24/17 09:44 Vaccines to be Administered [RC] PER UNIT ROUTINE 03/24/17 10:00 Furosemide [Lasix] 40 mg IVPUSH Q8H 03/24/17 12:00 Potassium Chloride [Klor-Con M20] 20 meq PO TID 03/24/17 Breakfast Fluid Restriction [DIET] 03/24/17 Dinner Nothing per Oral Now Diet [DIET] 03/25/17 00:51 CBC WITH AUTO DIFF [HEME] Routine 03/25/17 05:11 EKG Documentation Completion [RC] ASDIRECTED Echo Comp wo Cont [US] Urgent CK W CKMB [CHEM] Routine COMPREHENSIVE METABOLIC PN,CMP [CHEM] Routine D-DIMER QUANTITATIVE [COAG] Routine GLYCOSYLATED HEMOGLOBIN,HGBA1C [CHEM] Routine LIPID PANEL [CHEM] Routine MAGNESIUM [CHEM] Routine PRO B-TYPE NATRIUR PEPT,BNPPRO [CHEM] Routine TROPONIN I [CHEM] Routine EKG 12 Lead [EK] Routine - Assessment Assessment:: As above. Right arm weakness. Resolved. No recurrence. HTN with recent systolic elevation over 200. Currently improved. Mildly elevated DDimer. Mild elevation BNP. Complaint of problems with ambulation and chronic lower extremity weakness. May be due to combination of deconditioning and arthritis. - Plan Plan:: Continue to monitor BP trends and observe for recurrence of arm complaint if systolic elevation is again noted. Family would like patient to be evaluated by PT and OT tomorrow and are interested in recommendations for improved mobility and strengthening. Repeat labs, including DDimer. Patient is not interested in home health at this time. She is very independent and wants to maintain her independence. Anticipate an additional day or two of inpatient care depending on how well PT/ OT goes tomorrow and if BP remains under better control.
[2017-03-24] MEDS: Sodium Chloride 0.9% 10 ML Syringe FLUSH PRN ×3 (10:00→17:44)
[2017-03-24] MEDS ORDERED: Iopamidol 755 Mg/ML 100 ML Bottle IVPUSH ONE (11:12)
[2017-03-24] MEDS: Furosemide 40 MG/4 ML VIAL IVPUSH SCH ×2 (12:16→17:42)
[2017-03-24] MEDS: Potassium Chloride 20 MEQ Tab.ER PO SCH ×2 (12:16→17:42)
[2017-03-24] MEDS: atorvaSTATin 10 MG Tab PO SCH (20:32)
[2017-03-25] MEDS: Furosemide 40 MG/4 ML VIAL IVPUSH SCH ×2 (04:16→09:49)
[2017-03-25] MEDS: Sodium Chloride 0.9% 10 ML Syringe FLUSH PRN (04:16)
[2017-03-25] MEDS: cloNIDine 0.1 MG Tab PO SCH (07:58)
[2017-03-25] MEDS: Potassium Chloride 20 MEQ Tab.ER PO SCH ×2 (07:59→12:01)
[2017-03-25] MEDS: Atenolol 50 MG Tab PO SCH (08:00)
[2017-03-25] MEDS: Aspirin 81 MG Tab.EC PO SCH (08:00)
[2017-03-25] MEDS: Pantoprazole 40 MG Tab.CR PO SCH (08:00)
--- NOTE | 2017-03-25 10:49 | PCM.DCSUM1 ---
Discharge Summary - Hospital Course HPI Initial Comments: See emergency room note/admission H&P Brief History: See emergency room note/admission H&P - Discharge Data Discharge Date: 03/25/17 Discharge Disposition: Home, Self-Care 01 Condition: Good - Discharge Diagnosis/Problem(s) (1) TIA (transient ischemic attack) SNOMED Code(s): 401473793, 300163936 ICD Code: G45.9 - TRANSIENT CEREBRAL ISCHEMIC ATTACK, UNSPECIFIED Status: Acute Priority: High Current Visit: Yes Onset Date: ~03/22/17 Problem Details: No neurological deficits at this time. Possible TIA versus CVA prior to admission with patient still refusing hospital transfer for recommended MRA/ MRI of the head and carotid region. She also refuses recommended MRI of the head in this facility today, because she cannot tolerate this evaluation. Prolactin level is normal. Further workup of possible TIA, including echocardiogram in this facility with results as below. Carotid artery Doppler studies yesterday showed minimal disease. Continue to observe neurological status closely by her regular provider Qualifiers: Transient cerebral ischemia type: unspecified Qualified Code(s): G45.9 - Transient cerebral ischemic attack, unspecified (2) Coronary artery disease SNOMED Code(s): 04727977 ICD Code: I25.10 - ATHSCL HEART DISEASE OF [place] CORONARY ARTERY W/O ANG PCTRS Status: Chronic Priority: High Current Visit: Yes Problem Details : Stable lateral wall cardiac ischemia today with no recent chest pain or anginal type symptoms. Note mild persistent BNP elevation although significantly improved additionally improved d-dimer. Some hypoxia with ambulation yesterday with O2 sat of 94% on room air with exercise today and excellent results with increased Lasix therapy. Patient did refuse subcutaneous Lovenox therapy during this hospitalization. Cardiolite stress test on an outpatient basis as per discharge instructions. Cardiology consultation depending on her clinical course. Qualifiers: Coronary Disease-Associated Artery/Lesion type: [place] artery [place] vs. transplanted heart: [place] heart Associated angina: without angina Qualified Code(s): I25.10 - Atherosclerotic heart disease of [place] coronary artery without angina pectoris (3) Bifascicular bundle branch block SNOMED Code(s): 95154693 ICD Code: I45.2 - BIFASCICULAR BLOCK Status: Chronic Priority: Medium Current Visit: Yes Problem Details: As above (4) D-dimer, elevated SNOMED Code(s): 197524332 ICD Code: R79.89 - OTHER SPECIFIED ABNORMAL FINDINGS OF BLOOD CHEMISTRY Status: Acute Priority: High Current Visit: Yes Onset Date: 03/22/17 Problem Details: Further workup for D dimer elevation yesterday, including negative CTA of the chest and venous Doppler studies of the lower extremities. No other direct clinical evidence of PE or DVT. (5) CHF (congestive heart failure) SNOMED Code(s): 78334478 ICD Code: I50.9 - HEART FAILURE, UNSPECIFIED Status: Chronic Priority: High Current Visit: Yes Onset Date: 03/22/17 Problem Details: As above. Continue a fluid restriction and healthy diet. Qualifiers: Congestive heart failure type: unspecified congestive heart failure type Congestive heart failure chronicity: acute Qualified Code(s): I50.9 - Heart failure, unspecified (6) Hypertension SNOMED Code(s): 42358437 ICD Code: I10 - ESSENTIAL (PRIMARY) HYPERTENSION Status: Chronic Priority : Medium Current Visit: Yes Problem Details: Continue to observe closely with blood pressure is under good control at discharge Qualifiers: Hypertension type: essential hypertension Qualified Code(s): I10 - Essential (primary) hypertension (7) GERD (gastroesophageal reflux disease) SNOMED Code(s): 276035411 ICD Code: K21.9 - GASTRO-ESOPHAGEAL REFLUX DISEASE WITHOUT ESOPHAGITIS Status: Chronic Priority: Medium Current Visit: No Problem Details: Stable by history with patient currently on Protonix Qualifiers: Esophagitis presence: without esophagitis Qualified Code(s): K21.9 - Gastro -esophageal reflux disease without esophagitis (8) Dyslipidemia SNOMED Code(s): 110661227 ICD Code: E78.5 - HYPERLIPIDEMIA, UNSPECIFIED Status: Chronic Priority: Medium Current Visit: No Problem Details: Under therapy with normal lipid panel and glycosylated hemoglobin today. (9) Osteoarthritis SNOMED Code(s): 118781309 ICD Code: M19.90 - UNSPECIFIED OSTEOARTHRITIS, UNSPECIFIED SITE Status: Chronic Priority: Medium Current Visit: No Problem Details: Stable by history, including chronic leg weakness Qualifiers: Osteoarthritis location: multiple joints Osteoarthritis type: primary Qualified Code(s): M15.0 - Primary generalized (osteo)arthritis (10) Pulmonary nodule SNOMED Code(s): 580369974 ICD Code: R91.1 - SOLITARY PULMONARY NODULE Status: Acute Priority: Medium Current Visit: Yes Onset Date: 03/24/17 Problem Details: 6 mm probable benign right basilar pulmonary nodule by CT scan as below. Recommended repeat CT scan in 6 months by regular provider (11) COPD (chronic obstructive pulmonary disease) SNOMED Code(s): 31241997 ICD Code: J44.9 - CHRONIC OBSTRUCTIVE PULMONARY DISEASE, UNSPECIFIED Status : Acute Current Visit: Yes Problem Details: COPD by chest x-ray with no current medical therapy. Consider PFTs, future nebulizer therapy, etc. No recent fever or bronchitic type symptoms Qualifiers: COPD type: emphysema Emphysema type: panlobular Qualified Code(s): J43.1 - Panlobular emphysema (12) Diastolic dysfunction with acute on chronic heart failure SNOMED Code(s): 9587078, 233447102 ICD Code: I50.33 - ACUTE ON CHRONIC DIASTOLIC (CONGESTIVE) HEART FAILURE Status: Acute Priority: High Current Visit: Yes Onset Date: 03/25/17 Problem Details: Newly diagnosed diastolic dysfunction by echocardiogram as below. Patient is not a candidate digoxin. Otherwise as above - Patient Summary/Data Operative Procedure(s) Performed: None Complications: None Consults: Consultations 03/22/17 18:19 OT Evaluation and Treatment [CONS] Routine PT Evaluation and Treatment [CONS] Routine Labs Pending at D/C: Urine culture and sensitivity Recommended Follow-up Testing/Procedures: As per discharge instructions Planned Operative Procedure(s) after DC: None Hospital Course: She was admitted to inpatient/acute care for possible TIA versus CVA with no evidence of neurological deficits at discharge and no complications during this hospitalization. Patient did have some CHF on admission, however no chest pain or anginal complaints. Aggressive IV Lasix therapy was initiated with overall good results and resolution of previous mild hypoxia with ambulation. Patient did initially refuse Lovenox, recommended MRI, etc. as above, however did otherwise follow hospital orders and was cooperative. Note negative workup for DVT and PE as above. - Patient Instructions Diet: Fluid Restriction Fluid Restriction: 2000 mL Feeding Instructions: Diverticulosis Activity: No Strenuous Activities (50% maximum exercise restriction with continued fall and injury precautions until cardiac status has been determined and you are released by your regular provider) Driving: May Drive Today Showering/Bathing: May Shower Notify Provider of: Increased Pain, Nausea and/or Vomiting Other/Special Instructions: 1. Follow-up with your regular provider in one week for reevaluation and recommended CBC, comprehensive metabolic panel, magnesium level, BNP, d-dimer, uric acid level, CK, CK-MB, troponin I, and EKG. 2. Discuss scheduling Cardiolite stress test with me in this facility after that visit. 3. CT scan of the chest should be repeated in about 6 months secondary to newly diagnosed probable benign 6 mm right basilar pulmonary nodule. 4. Discuss possible lung function tests, PFTs, with regular provider at follow-up. 5. Strict appliances all medical therapy. Never skip any medications, including furosemide, etc. - Discharge Plan Prescriptions/Med Rec: Furosemide [Lasix] 40 mg PO DAILY #30 tablet Potassium Chloride 20 meq PO BIDMEALS #30 tablet.er Home Medications: Home Meds Aspirin [Halfprin] 81 mg PO BRK 03/22/17 [History] Atenolol 50 mg PO BID 03/22/17 [History] Felodipine [Felodipine ER] 5 mg PO BEDTIME 03/22/17 [History] Pantoprazole [ProTONIX] 40 mg PO DAILY 03/22/17 [History] Quinapril HCl [Accupril] 40 mg PO DAILY 03/22/17 [History] atorvaSTATin [Lipitor] 10 mg PO BEDTIME 03/22/17 [History] cloNIDine [Catapres] 0.1 mg PO BEDTIME 03/22/17 [History] cloNIDine [Catapres] 0.1 mg PO DAILY 03/22/17 [History] Furosemide [Lasix] 40 mg PO DAILY #30 tablet 03/25/17 [Rx] Potassium Chloride 20 meq PO BIDMEALS #30 tablet.er 03/25/17 [Rx] Patient Handouts: Furosemide tablets, Potassium Citrate Extended-Release Tablets Forms: ED Department Discharge Referrals: Henri Cerrato PA [Primary Care Provider] - - Discharge Summary/Plan Comment DC Time >30 min.: Yes (Coordination of care) Discharge Summary/Plan Comment: As above. Extensive precautions were given to the patient, who is in agreement with the treatment plan. See Patient Instructions for further treatment and plan. - General Info Date of Service: 03/25/17 Admission Dx/Problem (Free Text: 1. CVA versus TIA with brief right arm weakness 2. Hypertension 3. D-dimer elevation 4. CHF Functional Status: Reports: Pain Controlled, Tolerating Diet, Ambulating, Urinating. Denies: New Symptoms, Incentive Spirometry Numeric/FACES Score: 0 - Review of Systems General: Reports: No Symptoms. Denies: Fever, Weakness, Fatigue, Malaise, Chills, Night Sweats, Appetite (Appetite good) HEENT: Reports: No Symptoms. Denies: Dysphasia, Ear Pain, Eye Pain, Headaches, Sinus Congestion, Sore Throat, Rhinitis, Visual Changes Pulmonary: Reports: No Symptoms. Denies: Shortness of Breath, Pleuritic Chest Pain, Cough, Sputum, Wheezing Cardiovascular: Reports: Edema (Improved dependent). Denies: Chest Pain, Palpitations, Dyspnea on Exertion, Orthopnea, PND, Lightheadedness Gastrointestinal: Reports: No Symptoms, Other (Excellent bowel movement yesterday by her history). Denies: Abdominal Pain, Constipation, Decreased Appetite, Diarrhea, Difficulty Swallowing, Flatus, Hematochezia, Melena, Nausea , Vomiting Genitourinary: Reports: No Symptoms. Denies: Dysuria, Frequency, Burning, Pain , Urgency, Incontinence, Hematuria, Retention, Flank Pain Musculoskeletal: Reports: No Symptoms. Denies: Neck Pain, Shoulder Pain, Arm Pain, Back Pain, Leg Pain Skin: Reports: No Symptoms. Denies: Pallor, Diaphoresis, Bruising Neurological: Reports: No Symptoms. Denies: Confusion, Dizziness, Headache, Numbness, Paresthesia, Seizure, Syncope, Tingling, Difficulty Walking, Weakness , Change in Speech Psychiatric: Reports: No Symptoms. Denies: Confusion, Depression, Mood Lability , Anxiety, Agitation, Hallucinations - Patient Data Vitals - Most Recent: Last Vital Signs Temp 36.1 C 03/25/17 08:00 Pulse 67 03/25/17 08:00 Resp 16 03/25/17 08:00 BP 146/76 H 03/25/17 08:00 Pulse Ox 91 L 03/25/17 08:00 Vital Signs - 24 hr 03/24/17 03/24/17 03/25/17 16:00 20:32 07:58 Temperature [ Oral] Temperature [ 36.2 C Temporal] Pulse, Peripheral Pulse, 62 Peripheral [ Right Pulse Oximetry] Respiratory 16 Rate Blood Pressure 135/59 L 146/76 H Blood Pressure 135/59 L [Left Upper Arm ] O2 Sat by Pulse Oximetry 03/25/17 03/25/17 08:00 11:27 Temperature [ 36.1 C Oral] Temperature [ 36.1 C Temporal] Pulse, 67 Peripheral Pulse, 67 69 Peripheral [ Right Pulse Oximetry] Respiratory 16 18 Rate Blood Pressure 146/76 H Blood Pressure 146/76 H 99/53 L [Left Upper Arm ] O2 Sat by Pulse 91 L 89 L Oximetry Weight - Most Recent: 68.538 kg I&O - Last 24 hours: Intake & Output 03/24/17 03/25/17 03/25/17 22:59 06:59 14:59 Output Total 800 Balance -800 Imaging Impressions - Last 24 hrs: Chest x-ray, PA and lateral, shows evidence of moderate to severe cardiomegaly with stable chronic bilateral lateral wall chest wall deformities. Mild prominence of the proximal aortic arch with mild aortic valve calcification. Stable mild CHF, pulmonary hypertension, and moderate COPD changes with no pulmonary infiltrates noted, moderate osteophytic and osteoporotic changes with additional kyphosis. 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 No evidence of DVT or significant carotid occlusive disease. CT of the chest results are still pending. Telephone consultation at 14:25 on 03/24/17 with the radiology department at [facility] in [place]. Negative preliminary verbal report of CTA of the chest for PE. Note 6 mm right basilar pulmonary nodule with recommended follow up in 6 months. Otherwise CAD/coronary calcifications noted. Verbal report at 12:50 5 PM from winston Nguyen, concerning preliminary results of echocardiogram results which were conducted in this facility today. Mild grade 2 diastolic dysfunction with decreased ejection fraction of 45-50%. No significant valvular disease, evidence of shunts, thrombi, etc. Lab Results - Last 24 hrs: Laboratory Results - last 24 hr 03/25/17 03/25/17 03/25/17 Range/Units 06:55 06:55 06:55 WBC 5.8 (4.0-10.2) K/uL RBC 5.01 (3.77-5.09) M/uL Hgb 15.4 (11.7-15.5) g/dL Hct 47.8 H (34.0-46.0) % MCV 95.4 (84.0-98.0) fL MCH 30.7 (28.2-33.3) pg MCHC 32.2 (31.7-36.0) g/dL RDW 14.6 H (11.2-14.1) % Plt Count 186 (150-350) K/uL Neut % (Auto) 65.7 (45.0-80.0) % Lymph % (Auto) 19.1 (10.0-50.0) % Mathews % (Auto) 11.3 (2.0-14.0) % Eos % (Auto) 2.9 (0.0-5.0) % Baso % (Auto) 1.0 (0.0-2.0) % Neut # (Auto) 3.82 (1.40-7.00) K/uL Lymph # (Auto) 1.11 (0.50-3.50) K/uL Mathews # (Auto) 0.66 (0.00-1.00) K/uL Eos # (Auto) 0.17 (0.00-0.50) K/uL Baso # (Auto) 0.06 (0.00-0.20) K/uL D-Dimer, Quantitative 450 H (0-400) ng/mL Sodium 144 (136-145) mmol/L Potassium 4.0 (3.5-5.1) mmol/L Chloride 105 (98-107) mmol/L Carbon Dioxide 31.5 (21.0-32.0) mmol/L BUN 19 H (7-18) mg/dL Creatinine 1.09 (0.51-1.17) mg/dL Est Cr Clr Drug Dosing 34.61 mL/min Estimated GFR (MDRD) 48 mL/min Glucose 97 (74-106) mg/dL Hemoglobin A1c (4.3-5.7) % Calcium 8.7 (8.5-10.1) mg/dL Magnesium 2.0 (1.8-2.4) mg/dL Total Bilirubin 0.6 (0.2-1.0) mg/dL AST 17 (15-37) U/L ALT 16 (12-78) U/L Alkaline Phosphatase 90 (46-116) IU/L Creatine Kinase 66 (26-308) U/L Creatine Kinase Index 1.8 (0.0-2.5) % CK-MB (CK-2) 1.20 (0.00-3.60) ng/mL Troponin I 0.006 (0.000-0.056) ng/mL Jgy-M-Qrdhkaclhml Pept 396 H (0-125) pg/mL Total Protein 6.9 (6.4-8.2) g/dL Albumin 3.6 (3.4-5.0) g/dL Triglycerides 122 (30-150) mg/dL Cholesterol 162 (100-200) mg/dL LDL Cholesterol, Calc 92 (0-100) mg/dL HDL Cholesterol 46 (40-60) mg/dL 03/25/17 Range/Units 06:55 WBC (4.0-10.2) K/uL RBC (3.77-5.09) M/uL Hgb (11.7-15.5) g/dL Hct (34.0-46.0) % MCV (84.0-98.0) fL MCH (28.2-33.3) pg MCHC (31.7-36.0) g/dL RDW (11.2-14.1) % Plt Count (150-350) K/uL Neut % (Auto) (45.0-80.0) % Lymph % (Auto) (10.0-50.0) % Mathews % (Auto) (2.0-14.0) % Eos % (Auto) (0.0-5.0) % Baso % (Auto) (0.0-2.0) % Neut # (Auto) (1.40-7.00) K/uL Lymph # (Auto) (0.50-3.50) K/uL [place]ws # (Auto) (0.00-1.00) K/uL Eos # (Auto) (0.00-0.50) K/uL Baso # (Auto) (0.00-0.20) K/uL D-Dimer, Quantitative (0-400) ng/mL Sodium (136-145) mmol/L Potassium (3.5-5.1) mmol/L Chloride (98-107) mmol/L Carbon Dioxide (21.0-32.0) mmol/L BUN (7-18) mg/dL Creatinine (0.51-1.17) mg/dL Est Cr Clr Drug Dosing mL/min Estimated GFR (MDRD) mL/min Glucose (74-106) mg/dL Hemoglobin A1c 5.6 (4.3-5.7) % Calcium (8.5-10.1) mg/dL Magnesium (1.8-2.4) mg/dL Total Bilirubin (0.2-1.0) mg/dL AST (15-37) U/L ALT (12-78) U/L Alkaline Phosphatase (46-116) IU/L Creatine Kinase (26-308) U/L Creatine Kinase Index (0.0-2.5) % CK-MB (CK-2) (0.00-3.60) ng/mL Troponin I (0.000-0.056) ng/mL Mzz-X-Nxxufybkzrs Pept (0-125) pg/mL Total Protein (6.4-8.2) g/dL Albumin (3.4-5.0) g/dL Triglycerides (30-150) mg/dL Cholesterol (100-200) mg/dL LDL Cholesterol, Calc (0-100) mg/dL HDL Cholesterol (40-60) mg/dL Laboratory Tests 03/22/17 03/22/17 03/22/17 Range/Units 16:00 16:00 16:00 WBC 5.8 (4.0-10.2) K/uL RBC 4.83 (3.77-5.09) M/uL Hgb 14.7 (11.7-15.5) g/dL Hct 45.8 (34.0-46.0) % MCV 94.8 (84.0-98.0) fL MCH 30.4 (28.2-33.3) pg MCHC 32.1 (31.7-36.0) g/dL RDW 14.6 H (11.2-14.1) % Plt Count 208 (150-350) K/uL Neut % (Auto) 62.7 (45.0-80.0) % Lymph % (Auto) 23.2 (10.0-50.0) % Mathews % (Auto) 9.8 (2.0-14.0) % Eos % (Auto) 2.9 (0.0-5.0) % Baso % (Auto) 1.4 (0.0-2.0) % Neut # (Auto) 3.66 (1.40-7.00) K/uL Lymph # (Auto) 1.35 (0.50-3.50) K/uL Mathews # (Auto) 0.57 (0.00-1.00) K/uL Eos # (Auto) 0.17 (0.00-0.50) K/uL Baso # (Auto) 0.08 (0.00-0.20) K/uL PT 12.5 H (9.8-11.7) SEC INR 1.2 APTT (23.5-30.0) SEC D-Dimer, Quantitative (0-400) ng/mL Sodium 143 (136-145) mmol/L Potassium 3.9 (3.5-5.1) mmol/L Chloride 106 (98-107) mmol/L Carbon Dioxide 30.2 (21.0-32.0) mmol/L BUN 14 (7-18) mg/dL Creatinine 0.92 (0.51-1.17) mg/dL Est Cr Clr Drug Dosing TNP Estimated GFR (MDRD) 58 mL/min Glucose 102 (74-106) mg/dL Hemoglobin A1c (4.3-5.7) % Calcium 8.3 L (8.5-10.1) mg/dL Magnesium (1.8-2.4) mg/dL Total Bilirubin 0.8 (0.2-1.0) mg/dL AST 18 (15-37) U/L ALT 17 (12-78) U/L Alkaline Phosphatase 93 (46-116) IU/L Creatine Kinase 55 (26-308) U/L Creatine Kinase Index 1.1 (0.0-2.5) % CK-MB (CK-2) 0.60 (0.00-3.60) ng/mL Troponin I 0.011 (0.000-0.056) ng/mL Mtr-K-Eksdjaeytop Pept 594 H (0-125) pg/mL Total Protein 7.1 (6.4-8.2) g/dL Albumin 3.8 (3.4-5.0) g/dL Triglycerides (30-150) mg/dL Cholesterol (100-200) mg/dL LDL Cholesterol, Calc (0-100) mg/dL HDL Cholesterol (40-60) mg/dL Prolactin ng/mL Specimen Type Urine Color Urine Appearance Urine pH (5.0-9.0) Ur Specific [place] (1.005-1.030) Urine Protein (NEGATIVE) mg/dL Urine Glucose (UA) (NEGATIVE) mg/dL Urine Ketones (NEGATIVE) mg/dL Urine Occult Blood (NEGATIVE) Urine Nitrite (NEGATIVE) Urine Bilirubin (NEGATIVE) Urine Urobilinogen (0.2-1.0) E.U./dL Ur Leukocyte Esterase (NEGATIVE) Urine RBC /HPF Urine WBC /HPF Ur Epithelial Cells /LPF Urine Bacteria (NONE TO FEW) /HPF 03/22/17 03/22/17 03/22/17 Range/Units 16:00 16:00 16:00 WBC (4.0-10.2) K/uL RBC (3.77-5.09) M/uL Hgb (11.7-15.5) g/dL Hct (34.0-46.0) % MCV (84.0-98.0) fL MCH (28.2-33.3) pg MCHC (31.7-36.0) g/dL RDW (11.2-14.1) % Plt Count (150-350) K/uL Neut % (Auto) (45.0-80.0) % Lymph % (Auto) (10.0-50.0) % Mathews % (Auto) (2.0-14.0) % Eos % (Auto) (0.0-5.0) % Baso % (Auto) (0.0-2.0) % Neut # (Auto) (1.40-7.00) K/uL Lymph # (Auto) (0.50-3.50) K/uL Mathews # (Auto) (0.00-1.00) K/uL Eos # (Auto) (0.00-0.50) K/uL Baso # (Auto) (0.00-0.20) K/uL PT (9.8-11.7) SEC INR APTT 26.1 (23.5-30.0) SEC D-Dimer, Quantitative 473 H (0-400) ng/mL Sodium (136-145) mmol/L Potassium (3.5-5.1) mmol/L Chloride (98-107) mmol/L Carbon Dioxide (21.0-32.0) mmol/L BUN (7-18) mg/dL Creatinine (0.51-1.17) mg/dL Est Cr Clr Drug Dosing Estimated GFR (MDRD) mL/min Glucose (74-106) mg/dL Hemoglobin A1c (4.3-5.7) % Calcium (8.5-10.1) mg/dL Magnesium 1.9 (1.8-2.4) mg/dL Total Bilirubin (0.2-1.0) mg/dL AST (15-37) U/L ALT (12-78) U/L Alkaline Phosphatase (46-116) IU/L Creatine Kinase (26-308) U/L Creatine Kinase Index (0.0-2.5) % CK-MB (CK-2) (0.00-3.60) ng/mL Troponin I (0.000-0.056) ng/mL Oig-J-Alxurrmvjqq Pept (0-125) pg/mL Total Protein (6.4-8.2) g/dL Albumin (3.4-5.0) g/dL Triglycerides (30-150) mg/dL Cholesterol (100-200) mg/dL LDL Cholesterol, Calc (0-100) mg/dL HDL Cholesterol (40-60) mg/dL Prolactin ng/mL Specimen Type Urine Color Urine Appearance Urine pH (5.0-9.0) Ur Specific [place] (1.005-1.030) Urine Protein (NEGATIVE) mg/dL Urine Glucose (UA) (NEGATIVE) mg/dL Urine Ketones (NEGATIVE) mg/dL Urine Occult Blood (NEGATIVE) Urine Nitrite (NEGATIVE) Urine Bilirubin (NEGATIVE) Urine Urobilinogen (0.2-1.0) E.U./dL Ur Leukocyte Esterase (NEGATIVE) Urine RBC /HPF Urine WBC /HPF Ur Epithelial Cells /LPF Urine Bacteria (NONE TO FEW) /HPF 03/22/17 03/22/17 03/24/17 Range/Units 16:00 16:43 06:50 WBC (4.0-10.2) K/uL RBC (3.77-5.09) M/uL Hgb (11.7-15.5) g/dL Hct (34.0-46.0) % MCV (84.0-98.0) fL MCH (28.2-33.3) pg MCHC (31.7-36.0) g/dL RDW (11.2-14.1) % Plt Count (150-350) K/uL Neut % (Auto) (45.0-80.0) % Lymph % (Auto) (10.0-50.0) % Mathews % (Auto) (2.0-14.0) % Eos % (Auto) (0.0-5.0) % Baso % (Auto) (0.0-2.0) % Neut # (Auto) (1.40-7.00) K/uL Lymph # (Auto) (0.50-3.50) K/uL Mathews # (Auto) (0.00-1.00) K/uL Eos # (Auto) (0.00-0.50) K/uL Baso # (Auto) (0.00-0.20) K/uL PT (9.8-11.7) SEC INR APTT (23.5-30.0) SEC D-Dimer, Quantitative 613 H (0-400) ng/mL Sodium (136-145) mmol/L Potassium (3.5-5.1) mmol/L Chloride (98-107) mmol/L Carbon Dioxide (21.0-32.0) mmol/L BUN (7-18) mg/dL Creatinine (0.51-1.17) mg/dL Est Cr Clr Drug Dosing Estimated GFR (MDRD) mL/min Glucose (74-106) mg/dL Hemoglobin A1c (4.3-5.7) % Calcium (8.5-10.1) mg/dL Magnesium (1.8-2.4) mg/dL Total Bilirubin (0.2-1.0) mg/dL AST (15-37) U/L ALT (12-78) U/L Alkaline Phosphatase (46-116) IU/L Creatine Kinase (26-308) U/L Creatine Kinase Index (0.0-2.5) % CK-MB (CK-2) (0.00-3.60) ng/mL Troponin I (0.000-0.056) ng/mL Kcv-J-Nsbtkwpqdqx Pept (0-125) pg/mL Total Protein (6.4-8.2) g/dL Albumin (3.4-5.0) g/dL Triglycerides (30-150) mg/dL Cholesterol (100-200) mg/dL LDL Cholesterol, Calc (0-100) mg/dL HDL Cholesterol (40-60) mg/dL Prolactin 12.5 ng/mL Specimen Type Urinblad Urine Color Yellow Urine Appearance Clear Urine pH 7.0 (5.0-9.0) Ur Specific [place] 1.010 (1.005-1.030) Urine Protein Negative (NEGATIVE) mg/dL Urine Glucose (UA) Negative (NEGATIVE) mg/dL Urine Ketones Negative (NEGATIVE) mg/dL Urine Occult Blood Trace-intact H (NEGATIVE) Urine Nitrite Negative (NEGATIVE) Urine Bilirubin Negative (NEGATIVE) Urine Urobilinogen 0.2 (0.2-1.0) E.U./dL Ur Leukocyte Esterase Negative (NEGATIVE) Urine RBC 0-5 /HPF Urine WBC 0-5 /HPF Ur Epithelial Cells Rare /LPF Urine Bacteria Rare (NONE TO FEW) /HPF 03/24/17 03/24/17 03/24/17 Range/Units 06:55 06:55 06:55 WBC 5.3 (4.0-10.2) K/uL RBC 4.92 (3.77-5.09) M/uL Hgb 14.9 (11.7-15.5) g/dL Hct 46.6 H (34.0-46.0) % MCV 94.7 (84.0-98.0) fL MCH 30.3 (28.2-33.3) pg MCHC 32.0 (31.7-36.0) g/dL RDW 14.4 H (11.2-14.1) % Plt Count 173 (150-350) K/uL Neut % (Auto) 65.4 (45.0-80.0) % Lymph % (Auto) 21.7 (10.0-50.0) % Mathews % (Auto) 9.4 (2.0-14.0) % Eos % (Auto) 2.4 (0.0-5.0) % Baso % (Auto) 1.1 (0.0-2.0) % Neut # (Auto) 3.49 (1.40-7.00) K/uL Lymph # (Auto) 1.16 (0.50-3.50) K/uL Mathews # (Auto) 0.50 (0.00-1.00) K/uL Eos # (Auto) 0.13 (0.00-0.50) K/uL Baso # (Auto) 0.06 (0.00-0.20) K/uL PT (9.8-11.7) SEC INR APTT (23.5-30.0) SEC D-Dimer, Quantitative (0-400) ng/mL Sodium 143 (136-145) mmol/L Potassium 4.1 (3.5-5.1) mmol/L Chloride 106 (98-107) mmol/L Carbon Dioxide 31.4 (21.0-32.0) mmol/L BUN 15 (7-18) mg/dL Creatinine 0.86 (0.51-1.17) mg/dL Est Cr Clr Drug Dosing 43.55 Estimated GFR (MDRD) > 60 mL/min Glucose 97 (74-106) mg/dL Hemoglobin A1c (4.3-5.7) % Calcium 8.4 L (8.5-10.1) mg/dL Magnesium (1.8-2.4) mg/dL Total Bilirubin 0.9 (0.2-1.0) mg/dL AST 15 (15-37) U/L ALT 15 (12-78) U/L Alkaline Phosphatase 85 (46-116) IU/L Creatine Kinase 57 (26-308) U/L Creatine Kinase Index 0.9 (0.0-2.5) % CK-MB (CK-2) 0.50 (0.00-3.60) ng/mL Troponin I 0.017 (0.000-0.056) ng/mL [id number] Pept 520 H (0-125) pg/mL Total Protein 6.7 (6.4-8.2) g/dL Albumin 3.4 (3.4-5.0) g/dL Triglycerides (30-150) mg/dL Cholesterol (100-200) mg/dL LDL Cholesterol, Calc (0-100) mg/dL HDL Cholesterol (40-60) mg/dL Prolactin ng/mL Specimen Type Urine Color Urine Appearance Urine pH (5.0-9.0) Ur Specific [place] (1.005-1.030) Urine Protein (NEGATIVE) mg/dL Urine Glucose (UA) (NEGATIVE) mg/dL Urine Ketones (NEGATIVE) mg/dL Urine Occult Blood (NEGATIVE) Urine Nitrite (NEGATIVE) Urine Bilirubin (NEGATIVE) Urine Urobilinogen (0.2-1.0) E.U./dL Ur Leukocyte Esterase (NEGATIVE) Urine RBC /HPF Urine WBC /HPF Ur Epithelial Cells /LPF Urine Bacteria (NONE TO FEW) /HPF 03/25/17 03/25/17 03/25/17 Range/Units 06:55 06:55 06:55 WBC 5.8 (4.0-10.2) K/uL RBC 5.01 (3.77-5.09) M/uL Hgb 15.4 (11.7-15.5) g/dL Hct 47.8 H (34.0-46.0) % MCV 95.4 (84.0-98.0) fL MCH 30.7 (28.2-33.3) pg MCHC 32.2 (31.7-36.0) g/dL RDW 14.6 H (11.2-14.1) % Plt Count 186 (150-350) K/uL Neut % (Auto) 65.7 (45.0-80.0) % Lymph % (Auto) 19.1 (10.0-50.0) % Mathews % (Auto) 11.3 (2.0-14.0) % Eos % (Auto) 2.9 (0.0-5.0) % Baso % (Auto) 1.0 (0.0-2.0) % Neut # (Auto) 3.82 (1.40-7.00) K/uL Lymph # (Auto) 1.11 (0.50-3.50) K/uL Mathews # (Auto) 0.66 (0.00-1.00) K/uL Eos # (Auto) 0.17 (0.00-0.50) K/uL Baso # (Auto) 0.06 (0.00-0.20) K/uL PT (9.8-11.7) SEC INR APTT (23.5-30.0) SEC D-Dimer, Quantitative 450 H (0-400) ng/mL Sodium 144 (136-145) mmol/L Potassium 4.0 (3.5-5.1) mmol/L Chloride 105 (98-107) mmol/L Carbon Dioxide 31.5 (21.0-32.0) mmol/L BUN 19 H (7-18) mg/dL Creatinine 1.09 (0.51-1.17) mg/dL Est Cr Clr Drug Dosing 34.61 Estimated GFR (MDRD) 48 mL/min Glucose 97 (74-106) mg/dL Hemoglobin A1c (4.3-5.7) % Calcium 8.7 (8.5-10.1) mg/dL Magnesium 2.0 (1.8-2.4) mg/dL Total Bilirubin 0.6 (0.2-1.0) mg/dL AST 17 (15-37) U/L ALT 16 (12-78) U/L Alkaline Phosphatase 90 (46-116) IU/L Creatine Kinase 66 (26-308) U/L Creatine Kinase Index 1.8 (0.0-2.5) % CK-MB (CK-2) 1.20 (0.00-3.60) ng/mL Troponin I 0.006 (0.000-0.056) ng/mL [id number] Pept 396 H (0-125) pg/mL Total Protein 6.9 (6.4-8.2) g/dL Albumin 3.6 (3.4-5.0) g/dL Triglycerides 122 (30-150) mg/dL Cholesterol 162 (100-200) mg/dL LDL Cholesterol, Calc 92 (0-100) mg/dL HDL Cholesterol 46 (40-60) mg/dL Prolactin ng/mL Specimen Type Urine Color Urine Appearance Urine pH (5.0-9.0) Ur Specific [place] (1.005-1.030) Urine Protein (NEGATIVE) mg/dL Urine Glucose (UA) (NEGATIVE) mg/dL Urine Ketones (NEGATIVE) mg/dL Urine Occult Blood (NEGATIVE) Urine Nitrite (NEGATIVE) Urine Bilirubin (NEGATIVE) Urine Urobilinogen (0.2-1.0) E.U./dL Ur Leukocyte Esterase (NEGATIVE) Urine RBC /HPF Urine WBC /HPF Ur Epithelial Cells /LPF Urine Bacteria (NONE TO FEW) /HPF 03/25/17 Range/Units 06:55 WBC (4.0-10.2) K/uL RBC (3.77-5.09) M/uL Hgb (11.7-15.5) g/dL Hct (34.0-46.0) % MCV (84.0-98.0) fL MCH (28.2-33.3) pg MCHC (31.7-36.0) g/dL RDW (11.2-14.1) % Plt Count (150-350) K/uL Neut % (Auto) (45.0-80.0) % Lymph % (Auto) (10.0-50.0) % Mathews % (Auto) (2.0-14.0) % Eos % (Auto) (0.0-5.0) % Baso % (Auto) (0.0-2.0) % Neut # (Auto) (1.40-7.00) K/uL Lymph # (Auto) (0.50-3.50) K/uL Mathews # (Auto) (0.00-1.00) K/uL Eos # (Auto) (0.00-0.50) K/uL Baso # (Auto) (0.00-0.20) K/uL PT (9.8-11.7) SEC INR APTT (23.5-30.0) SEC D-Dimer, Quantitative (0-400) ng/mL Sodium (136-145) mmol/L Potassium (3.5-5.1) mmol/L Chloride (98-107) mmol/L Carbon Dioxide (21.0-32.0) mmol/L BUN (7-18) mg/dL Creatinine (0.51-1.17) mg/dL Est Cr Clr Drug Dosing Estimated GFR (MDRD) mL/min Glucose (74-106) mg/dL Hemoglobin A1c 5.6 (4.3-5.7) % Calcium (8.5-10.1) mg/dL Magnesium (1.8-2.4) mg/dL Total Bilirubin (0.2-1.0) mg/dL AST (15-37) U/L ALT (12-78) U/L Alkaline Phosphatase (46-116) IU/L Creatine Kinase (26-308) U/L Creatine Kinase Index (0.0-2.5) % CK-MB (CK-2) (0.00-3.60) ng/mL Troponin I (0.000-0.056) ng/mL Lqy-K-Ntonltxogyy Pept (0-125) pg/mL Total Protein (6.4-8.2) g/dL Albumin (3.4-5.0) g/dL Triglycerides (30-150) mg/dL Cholesterol (100-200) mg/dL LDL Cholesterol, Calc (0-100) mg/dL HDL Cholesterol (40-60) mg/dL Prolactin ng/mL Specimen Type Urine Color Urine Appearance Urine pH (5.0-9.0) Ur Specific [place] (1.005-1.030) Urine Protein (NEGATIVE) mg/dL Urine Glucose (UA) (NEGATIVE) mg/dL Urine Ketones (NEGATIVE) mg/dL Urine Occult Blood (NEGATIVE) Urine Nitrite (NEGATIVE) Urine Bilirubin (NEGATIVE) Urine Urobilinogen (0.2-1.0) E.U./dL Ur Leukocyte Esterase (NEGATIVE) Urine RBC /HPF Urine WBC /HPF Ur Epithelial Cells /LPF Urine Bacteria (NONE TO FEW) /HPF WALTER Results - Last 24 hrs: Hemoccult not collected by patient despite previous orders Med Orders - Current: Current Medications Acetaminophen (Tylenol) 650 mg PO Q4H PRN PRN Reason: analgesia/fever Aspirin (Halfprin) 81 mg PO BRK [facility] Last Admin: 03/25/17 08:00 Dose: 81 mg Atenolol (Tenormin) 50 mg PO BID@0800,1830 [facility] Last Admin: 03/25/17 08:00 Dose: 50 mg Atorvastatin Calcium (Lipitor) 10 mg PO BEDTIME [facility] Last Admin: 03/24/17 20:32 Dose: 10 mg Clonidine HCl (Catapres) 0.1 mg PO BEDTIME [facility] Last Admin: 03/24/17 20:32 Dose: 0.1 mg Clonidine HCl (Catapres) 0.1 mg PO DAILY [facility] Last Admin: 03/25/17 07:58 Dose: 0.1 mg Felodipine (Felodipine Er) 5 mg PO BEDTIME [facility] Last Admin: 03/24/17 20:32 Dose: 5 mg Furosemide (Lasix) 40 mg IVPUSH Q8H [facility] Last Admin: 03/25/17 09:49 Dose: 40 mg Pantoprazole Sodium (Protonix) 40 mg PO ACBREAKFAST [facility] Last Admin: 03/25/17 08:00 Dose: 40 mg Potassium Chloride (Klor-Con M20) 20 meq PO TID [facility] Last Admin: 03/25/17 07:59 Dose: 20 meq Quinapril HCl (Accupril) 40 mg PO DAILY [facility] Last Admin: 03/25/17 07:58 Dose: 40 mg Sodium Chloride (Saline Flush) 10 ml FLUSH ASDIRECTED PRN PRN Reason: Keep Vein Open Last Admin: 03/25/17 04:16 Dose: 10 ml Discontinued Medications Atenolol (Tenormin) 50 mg PO ONETIME ONE Stop: 03/22/17 18:50 Last Admin: 03/22/17 19:55 Dose: 50 mg Furosemide (Lasix) 20 mg PO DAILY [facility] Last Admin: 03/24/17 07:28 Dose: 20 mg Iopamidol (Isovue-370 (76%)) 100 ml IVPUSH ONETIME ONE Stop: 03/24/17 11:13 Last Admin: 03/24/17 15:02 Dose: 100 ml - Exam Quality Assessment: Reports: Supplemental Oxygen, DVT Prophylaxis (Patient refused Lovenox with PETER hose initiated). Denies: Central Line/PICC, Urine Catheter General: Reports: Alert, Oriented, Cooperative, No Acute Distress HEENT: Reports: Pupils Equal, Pupils Reactive, EOMI, Mucous Membr. Moist/Straughn Neck: Reports: Supple, Trachea Midline, No JVD, No Thyromegaly, Carotid Bruit ( Mild bilateral carotid bruits). Denies: Lymphadenopathy Lungs: Reports: Clear to Auscultation, Normal Respiratory Effort. Denies: Rub Cardiovascular: Reports: Regular Rate, Regular Rhythm, No Murmurs. Denies: Gallops, Rubs GI/Abdominal Exam: Normal Bowel Sounds, Soft, Non-Tender, No Organomegaly, No Distention, No Abnormal Bruit, No Mass, Pelvis Stable. No: Guarding (Female) Exam: Deferred Rectal (Female) Exam: Deferred Back Exam: Reports: Normal Inspection, Full Range of Motion, Other (Mild kyphosis). Denies: CVA Tenderness (L), CVA Tenderness (R), Muscle Spasm Extremities: Normal Inspection, Normal Range of Motion, Non-Tender, Normal Capillary Refill, Pedal Edema (Trace bilateral pedal/pretibial edema). No: Tru's Sign Skin: Reports: Warm, Dry, Intact. 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 Lateral wall cardiac ischemia 2. Left ventricular hypertrophy by voltage 3. Left bundle branch block/bifascicular bundle-branch block *Q Meaningful Use (DIS) - VTE *Q VTE Criteria *Q: - Stroke *Q Stroke Criteria *Q: - AMI *Q AMI Criteria *Q:
[2017-03-25 11:28] VITALS: BP 99/53
== END 2017-03-25 13:50 | disposition home or self-care (01) | DRG 69 ==
LOC: LL.ED 16:00 → LL.MS 17:00 → UNDOADMIN 17:00 → LL.MS 18:19 → UNDODISIN 03-25 13:50
PROVIDERS: ADMIT Emergency Medicine; ATTEND Family Medicine
DX: I16.0 Hypertensive urgency (principal); G45.9 Transient cerebral ischemic attack, unspecified; I50.33 Acute on chronic diastolic (congestive) heart failure; I45.2 Bifascicular block; I11.0 Hypertensive heart disease with heart failure; M62.81 Muscle weakness (generalized); I25.10 Atherosclerotic heart disease of native coronary artery without angina pectoris; R79.89 Other specified abnormal findings of blood chemistry; K21.9 Gastro-esophageal reflux disease without esophagitis; E78.5 Hyperlipidemia, unspecified; M15.0 Primary generalized (osteo)arthritis; R91.1 Solitary pulmonary nodule; J44.9 Chronic obstructive pulmonary disease, unspecified
CPT/HCPCS: 36000; 36415; 70450; 71010; 71020; 71275; 80053; 80061; 81001; 82550; 82553; 83036; 83735; 83880; 84146; 84484; 85025; 85379; 85610; 85730; 93005; 93306; 93880; 93970; 97116-GP; 97161-GP; 99285; A9270-GY; J1940; J7050; Q9967

== ENCOUNTER 2021-11-06 12:37 | Emergency (ER) | payer MEDICAID ==
[2021-11-06] MEDS ORDERED: methylPREDNISolone Sodium Succinate 125 MG/2 ML SDV IVPUSH PRN (13:45)
[2021-11-06] MEDS ORDERED: EPINEPHrine 1 MG/ML SDV IM PRN (13:45)
[2021-11-06] MEDS ORDERED: diphenhydrAMINE 50 MG/ML SDV IVPUSH PRN (13:45)
[2021-11-06] MEDS ORDERED: Famotidine 20 MG/2 ML SDV IVPUSH PRN (13:45)
[2021-11-06] MEDS: Sodium Chloride 0.9% 10 ML Syringe FLUSH SCH ×2 (14:16→18:36)
[2021-11-06] MEDS ORDERED: Diltiazem 120 MG Cap.CD PO ONE (15:16)
[2021-11-06] MEDS ORDERED: Iopamidol 755 Mg/ML 100 ML Bottle IVPUSH ONE (15:41)
[2021-11-06] MEDS ORDERED: Sodium Chloride 0.9% 500 ML IV SCH (15:45)
[2021-11-06] MEDS ORDERED: Sodium Polystyrene Sulfonate 15 GM/60 ML Susp 60 ML Bot PO ONE (18:00)
[2021-11-06] MEDS ORDERED: Furosemide 20 MG/2 ML VIAL IVPUSH ONE (18:01)
[2021-11-06] MEDS ORDERED: Apixaban 5 MG Tab PO ONE (18:10)
[2021-11-06 18:21] VITALS: BP 135/86; PULSE 106
== END 2021-11-06 18:45 ==
LOC: LL.ED 12:37
DX: I48.91 Unspecified atrial fibrillation (principal); U07.1 COVID-19; N19 Unspecified kidney failure; E87.5 Hyperkalemia; E78.00 Pure hypercholesterolemia, unspecified; I10 Essential (primary) hypertension; K21.9 Gastro-esophageal reflux disease without esophagitis; Z79.82 Long term (current) use of aspirin; Z79.899 Other long term (current) drug therapy
CPT/HCPCS: 36415; 36416; 71045; 71275; 81001; 83605; 84132; 84484; 85379; 85610; 93005; 93010; 99284; A9270; J1940; J3490; J7040; M0247; Q0247; Q9967

== ENCOUNTER 2022-01-09 17:42 | Inpatient (IN) | payer MEDICARE, MEDICAID ==
[2022-01-09] MEDS ORDERED: Furosemide 40 MG/4 ML VIAL IVPUSH ONE (18:23)
[2022-01-09 19:15] LABS: ANION GAP 6.8 meq/L (7-15)
[2022-01-09] MEDS ORDERED: cloNIDine 0.1 MG Tab PO PRN (19:53)
[2022-01-09] MEDS ORDERED: Polyethylene Glycol 3350 Powder 17 GM Packet PO PRN (19:56)
[2022-01-09] MEDS ORDERED: Acetaminophen 325 MG Tab PO PRN (19:56)
[2022-01-09] MEDS ORDERED: Ondansetron 4 MG Tab.DIS PO PRN (19:56)
[2022-01-09] MEDS ORDERED: amLODIPine 5 MG Tab PO SCH (20:00)
[2022-01-09] MEDS: Potassium Chloride 20 MEQ Tab.ER PO SCH (22:28)
[2022-01-09] MEDS: Apixaban 5 MG Tab PO SCH (22:28)
[2022-01-10] MEDS: Potassium Chloride 20 MEQ Tab.ER PO SCH ×2 (07:42→17:20)
[2022-01-10] MEDS: Apixaban 5 MG Tab PO SCH ×2 (07:42→17:20)
[2022-01-10] MEDS: Furosemide 40 MG/4 ML VIAL IVPUSH SCH ×2 (07:42→17:20)
[2022-01-10] MEDS: Sodium Chloride 0.9% 10 ML Syringe FLUSH PRN ×2 (07:43→17:21)
[2022-01-10] MEDS ORDERED: Digoxin 125 MCG Tab PO SCH (08:00)
[2022-01-10] MEDS ORDERED: Metoprolol Succinate 50 MG Tab.ER PO SCH (08:00)
[2022-01-11] MEDS: Apixaban 5 MG Tab PO SCH ×2 (07:47→18:00)
[2022-01-11] MEDS: Potassium Chloride 20 MEQ Tab.ER PO SCH ×2 (07:47→17:59)
[2022-01-11] MEDS: Sodium Chloride 0.9% 10 ML Syringe FLUSH PRN ×3 (07:48→18:01)
[2022-01-11] MEDS: Furosemide 40 MG/4 ML VIAL IVPUSH SCH ×2 (07:48→18:01)
[2022-01-11 08:32] LABS: ANION GAP 8.4 meq/L (7-15)
[2022-01-11] MEDS ORDERED: Magnesium Sulfate/D5W 1 GM/100 ML Premix Bag IV ONE (11:58)
[2022-01-11] MEDS ORDERED: Loperamide 2 MG Tab PO ONE (12:00)
[2022-01-12 07:46] LABS: ANION GAP 9.1 meq/L (7-15)
[2022-01-12] MEDS: Apixaban 5 MG Tab PO SCH ×2 (07:50→17:20)
[2022-01-12] MEDS: Furosemide 40 MG/4 ML VIAL IVPUSH SCH ×2 (07:50→17:18)
[2022-01-12] MEDS: Potassium Chloride 20 MEQ Tab.ER PO SCH ×2 (07:50→17:21)
[2022-01-12] MEDS: Sodium Chloride 0.9% 10 ML Syringe FLUSH PRN ×2 (07:58→17:16)
[2022-01-12] MEDS: Loperamide 2 MG Tab PO PRN (09:23)
[2022-01-13] MEDS: Sodium Chloride 0.9% 10 ML Syringe FLUSH PRN ×2 (08:29→17:22)
[2022-01-13] MEDS: Potassium Chloride 20 MEQ Tab.ER PO SCH ×2 (08:29→17:24)
[2022-01-13] MEDS: Furosemide 40 MG/4 ML VIAL IVPUSH SCH ×2 (08:29→17:24)
[2022-01-13] MEDS: Apixaban 5 MG Tab PO SCH ×2 (08:29→17:24)
[2022-01-13] MEDS: Loperamide 2 MG Tab PO PRN (09:31)
[2022-01-13 17:41] VITALS: BP 115/73; PULSE 58
== END 2022-01-13 19:00 | disposition swing bed (61) | DRG 291 ==
LOC: LL.ED 17:42 → LL.MS 19:01
PROVIDERS: ADMIT Hospitalist; ATTEND Hospitalist
DX: I11.0 Hypertensive heart disease with heart failure (principal); I50.33 Acute on chronic diastolic (congestive) heart failure; J96.01 Acute respiratory failure with hypoxia; H54.7 Unspecified visual loss; E78.00 Pure hypercholesterolemia, unspecified; I49.9 Cardiac arrhythmia, unspecified; K21.9 Gastro-esophageal reflux disease without esophagitis; J44.9 Chronic obstructive pulmonary disease, unspecified; E78.2 Mixed hyperlipidemia; I25.10 Atherosclerotic heart disease of native coronary artery without angina pectoris; M19.90 Unspecified osteoarthritis, unspecified site; Z79.899 Other long term (current) drug therapy; Z66 Do not resuscitate; I48.0 Paroxysmal atrial fibrillation; Z79.01 Long term (current) use of anticoagulants; Z87.891 Personal history of nicotine dependence; Z86.16 Personal history of COVID-19; Z86.73 Personal history of transient ischemic attack (TIA), and cerebral infarction without residual deficits
CPT/HCPCS: 36415; 71046; 80048; 80053; 80162; 83735; 83880; 84484; 85025; 85027; 85379; 93005; 94761; 96374; 97162-GP; 97166-GO; 97530-GP; 97535-GO; 99285-25; A9270-GY; J1940; J3475; J3490

== ENCOUNTER 2022-01-12 15:07 | Inpatient (IN) | payer MEDICARE, MEDICAID ==
[2022-01-13] MEDS ORDERED: Loperamide 2 MG Tab PO PRN (20:02)
[2022-01-13] MEDS ORDERED: Acetaminophen 325 MG Tab PO PRN (20:02)
[2022-01-13] MEDS ORDERED: Sodium Chloride 0.9% 10 ML Syringe FLUSH PRN (20:02)
[2022-01-13] MEDS ORDERED: Ondansetron 4 MG Tab.DIS PO PRN (20:02)
[2022-01-13] MEDS ORDERED: Polyethylene Glycol 3350 Powder 17 GM Packet PO PRN (20:02)
[2022-01-14] MEDS: Apixaban 5 MG Tab PO SCH ×2 (07:58→17:25)
[2022-01-14] MEDS: Furosemide 40 MG/4 ML VIAL IVPUSH SCH ×2 (07:58→17:25)
[2022-01-14] MEDS: Potassium Chloride 20 MEQ Tab.ER PO SCH ×2 (07:58→17:25)
[2022-01-15] MEDS: Furosemide 40 MG/4 ML VIAL IVPUSH SCH ×2 (07:39→17:07)
[2022-01-15] MEDS: Apixaban 5 MG Tab PO SCH ×2 (07:39→17:07)
[2022-01-15] MEDS: Potassium Chloride 20 MEQ Tab.ER PO SCH ×2 (07:39→17:07)
[2022-01-15] MEDS: Sodium Chloride 0.9% 10 ML Syringe FLUSH PRN ×2 (07:40→17:08)
[2022-01-15 23:01] VITALS: PULSE 93
[2022-01-16] MEDS: Sodium Chloride 0.9% 10 ML Syringe FLUSH PRN (08:12)
[2022-01-16] MEDS: Furosemide 40 MG/4 ML VIAL IVPUSH SCH (08:13)
[2022-01-16] MEDS: Potassium Chloride 20 MEQ Tab.ER PO SCH (08:13)
[2022-01-16] MEDS: Apixaban 5 MG Tab PO SCH (08:14)
[2022-01-16 08:19] VITALS: BP 128/85
== END 2022-01-16 15:01 | disposition home or self-care (01) | DRG 947 ==
LOC: LL.MS 01-13 18:55
PROVIDERS: ADMIT Hospitalist; ATTEND Hospitalist
DX: R53.1 Weakness (principal); I50.33 Acute on chronic diastolic (congestive) heart failure; J96.01 Acute respiratory failure with hypoxia; K21.9 Gastro-esophageal reflux disease without esophagitis; E78.00 Pure hypercholesterolemia, unspecified; I11.0 Hypertensive heart disease with heart failure; M19.90 Unspecified osteoarthritis, unspecified site; Z66 Do not resuscitate; J44.9 Chronic obstructive pulmonary disease, unspecified; E78.2 Mixed hyperlipidemia; I25.10 Atherosclerotic heart disease of native coronary artery without angina pectoris; E87.5 Hyperkalemia; I48.91 Unspecified atrial fibrillation; Z86.73 Personal history of transient ischemic attack (TIA), and cerebral infarction without residual deficits
CPT/HCPCS: 97161-GP; 97166-GO; 97530-GO; 97530-GP; 97535-GO; A9270-GY; J1940; J3490

== ENCOUNTER 2022-01-31 07:10 | Emergency (ER) | payer MEDICAID, MEDICARE ==
[2022-01-31] MEDS ORDERED: Diltiazem 25 MG/5 ML SDV IVPUSH ONE (07:46)
[2022-01-31 07:50] LABS: ANION GAP 7.6 meq/L (7-15)
[2022-01-31] MEDS ORDERED: Sodium Chloride 0.9% 10 ML Syringe FLUSH PRN (08:13)
[2022-01-31 15:45] VITALS: BP 103/58; PULSE 79
== END 2022-01-31 09:40 | disposition home or self-care (01) ==
LOC: LL.ED 07:10
DX: I48.91 Unspecified atrial fibrillation (principal); I11.0 Hypertensive heart disease with heart failure; I50.9 Heart failure, unspecified; K21.9 Gastro-esophageal reflux disease without esophagitis; Z79.01 Long term (current) use of anticoagulants
CPT/HCPCS: 36415; 80053; 85025; 93005; 96374; 99285; J3490

== ENCOUNTER 2022-04-27 16:01 | Observation (INO) | payer MEDICAID ==
[2022-04-27] MEDS ORDERED: Sodium Chloride 0.9% 10 ML Syringe FLUSH PRN (16:28)
[2022-04-27 17:27] LABS: ANION GAP 10.7 meq/L (7-15); CHLORIDE,CL 103 mmol/L (98-107); ESTIMATED GFR 32 mL/min (>=60); SODIUM,NA 137 mmol/L (136-145)
[2022-04-27] MEDS ORDERED: Magnesium Sulfate/Water 2 GM in Premix Bag 1 BAG IV ONE (18:26)
[2022-04-27] MEDS ORDERED: Sodium Chloride 0.9% 500 ML IV SCH (18:30)
[2022-04-27] MEDS ORDERED: Acetaminophen 325 MG Tab PO PRN (19:01)
[2022-04-27] MEDS ORDERED: Ondansetron 4 MG Tab.DIS PO PRN (19:01)
[2022-04-27] MEDS ORDERED: Polyethylene Glycol 3350 Powder 17 GM Packet PO PRN (19:01)
[2022-04-27] MEDS ORDERED: Apixaban 5 MG Tab PO SCH (19:15)
[2022-04-28] MEDS ORDERED: Furosemide 40 MG Tab PO SCH (07:30)
[2022-04-28] MEDS ORDERED: Potassium Chloride 20 MEQ Tab.ER PO SCH (07:30)
[2022-04-28] MEDS ORDERED: Magnesium Chloride 64 MG Tab.ER PO SCH (08:00)
[2022-04-28] MEDS ORDERED: Magnesium Sulfate/Water 50 ML ONE (08:00)
[2022-04-28 08:23] LABS: ANION GAP 9.4 meq/L (7-15)
[2022-04-28 09:13] VITALS: BP 116/76; PULSE 95
[2022-04-28] MEDS ORDERED: Apixaban 5 MG Tab PO SCH (11:30)
== END 2022-04-28 13:20 | disposition home or self-care (01) ==
LOC: LL.ED 16:01 → LL.MS 18:15
PROVIDERS: ADMIT Hospitalist; ATTEND Hospitalist
DX: I13.0 Hypertensive heart and chronic kidney disease with heart failure and stage 1 through stage 4 chronic kidney disease, or unspecified chronic kidney disease (principal); N18.2 Chronic kidney disease, stage 2 (mild); J96.01 Acute respiratory failure with hypoxia; N17.9 Acute kidney failure, unspecified; J90 Pleural effusion, not elsewhere classified; I50.32 Chronic diastolic (congestive) heart failure; K21.9 Gastro-esophageal reflux disease without esophagitis; E83.42 Hypomagnesemia; J44.9 Chronic obstructive pulmonary disease, unspecified; I48.0 Paroxysmal atrial fibrillation; E78.2 Mixed hyperlipidemia; I25.10 Atherosclerotic heart disease of native coronary artery without angina pectoris; Z79.899 Other long term (current) drug therapy; Z98.890 Other specified postprocedural states; Z86.73 Personal history of transient ischemic attack (TIA), and cerebral infarction without residual deficits
CPT/HCPCS: 36415; 71045; 80048; 80053; 81003; 83735; 85025; 86140; 99285; A9270; J3475; J7040; 96365; G0378

== ENCOUNTER 2022-06-03 08:00 | Emergency (ER) | payer MEDICARE, MEDICAID ==
[2022-06-28 12:28] LABS: CHLORIDE,CL 102 mmol/L (98-107); SODIUM,NA 142 mmol/L (136-145)
[2022-06-28 12:29] LABS: ANION GAP 11.3 meq/L (7-15); ESTIMATED GFR 28 mL/min (>=60)
== END 2022-06-03 13:15 ==
LOC: LL.ED 08:00
DX: R19.7 Diarrhea, unspecified (principal)
CPT/HCPCS: 36415; 80053; 81001; 81003; 83605; 83880; 84484; 85025; 87086; 87088; 87186; 99284

== ENCOUNTER 2023-08-22 20:21 | Emergency (ER) | payer MEDICAID ==
[2023-08-22] MEDS ORDERED: Sodium Chloride 0.9% 10 ML Syringe FLUSH PRN (20:31)
[2023-08-22 21:04] LABS: BASOPHILS ABSOLUTE AUTO 0.15 K/uL (0.00-0.20); EOSINOPHILS ABSOLUTE AUTO 0.09 K/uL (0.00-0.50); EOSINOPHILS PERCENT AUTO 1.2 % (0.0-5.0); HEMATOCRIT 36.2 % (34.0-46.0); HEMOGLOBIN 11.7 g/dL (11.7-15.5); LYMPHOCYTES ABSOLUTE AUTO 1.07 K/uL (0.50-3.50); LYMPHOCYTES PERCENT AUTO 14.3 % (10.0-50.0); MEAN CORPUSCULAR HEMOGLOBIN 32.2 pg (28.2-33.3); MEAN CORPUSCULAR HGB CONC 32.3 g/dL (31.7-36.0); MEAN CORPUSCULAR VOLUME 99.7 fL (84.0-98.0); MONOCYTES ABSOLUTE AUTO 0.76 K/uL (0.00-1.00); MONOCYTES PERCENT AUTO 10.2 % (2.0-14.0); NEUTROPHILS ABSOLUTE AUTO 5.39 K/uL (1.40-7.00); NEUTROPHILS PERCENT AUTO 72.3 % (45.0-80.0); PLATELET COUNT,PLT 223 K/uL (150-350); RED BLOOD CELL COUNT 3.63 M/uL (3.77-5.09); RED CELL DISTRIBUTION WIDTH 15.4 % (11.2-14.1); WHITE BLOOD CELL COUNT,WBC 7.5 K/uL (4.0-10.2)
[2023-08-22 21:26] LABS: ALANINE AMINOTRANSFERASE,ALT 19 U/L (12-78); ALBUMIN 3.8 g/dL (3.4-5.0); ALKALINE PHOSPHATASE 78 IU/L (46-116); ASPARTATE AMNIOTRANSFERASE,AST 17 U/L (15-37); BILIRUBIN TOTAL 1.6 mg/dL (0.2-1.0); BLOOD UREA NITROGEN,BUN 85 mg/dL (7-18); CALCIUM 9.2 mg/dL (8.5-10.1); CHLORIDE,CL 90 mmol/L (98-107); GLUCOSE RANDOM 109 mg/dL (70-99); MAGNESIUM 3.1 mg/dL (1.8-2.4); POTASSIUM,K 4.3 mmol/L (3.5-5.1); PRO B-TYPE NATRIUR PEPT,BNPPRO 13417 pg/mL (0-125); PROTEIN TOTAL,TP 6.8 g/dL (6.4-8.2); SODIUM,NA 133 mmol/L (136-145)
[2023-08-22 21:30] VITALS: BP 128/76; PULSE 86
[2023-08-22 21:45] LABS: ANION GAP 6.9 meq/L (7-15); ESTIMATED GFR 11 mL/min (>=60)
[2023-08-22 21:46] LABS: CARBON DIOXIDE,CO2 40.4 mmol/L (21.0-32.0)
[2023-08-22 21:47] LABS: CORONAVIRUS COVID-19 NAA NEGATIVE (NEGATIVE); INFLUENZA A NAA NEGATIVE (NEGATIVE); INFLUENZA B NAA NEGATIVE (NEGATIVE); RESPIRATORY SYNCYTIAL VIR NAA NEGATIVE (NEGATIVE)
[2023-08-22] MEDS ORDERED: Sodium Chloride 0.9% 500 ML IV SCH (22:00)
[2023-08-22 22:15] LABS: APPEARANCE,URINE CLEAR; BILIRUBIN,URINE NEGATIVE (NEGATIVE); COLOR,URINE YELLOW; GLUCOSE,URINE NEGATIVE (NEGATIVE); KETONES,URINE NEGATIVE (NEGATIVE); LEUKOCYTE ESTERASE,URINE TRACE (NEGATIVE); NITRITE,URINE NEGATIVE (NEGATIVE); OCCULT BLOOD,URINE NEGATIVE (NEGATIVE); PH,URINE 8.5 (5.0-9.0); PROTEIN,URINE NEGATIVE (NEGATIVE); UROBILINOGEN,URINE 0.2 E.U./dL (0.2-1.0)
[2023-08-22 22:22] LABS: BACTERIA,URINE RARE /HPF (NONE TO FEW); RBC,URINE 0-5 /HPF; WBC,URINE 0-5 /HPF
== END 2023-08-23 01:00 ==
LOC: LL.ED 20:21
DX: I13.0 Hypertensive heart and chronic kidney disease with heart failure and stage 1 through stage 4 chronic kidney disease, or unspecified chronic kidney disease (principal); N18.4 Chronic kidney disease, stage 4 (severe); K80.20 Calculus of gallbladder without cholecystitis without obstruction; I50.9 Heart failure, unspecified; E78.00 Pure hypercholesterolemia, unspecified; Z20.822 Contact with and (suspected) exposure to COVID-19; Z79.899 Other long term (current) drug therapy; Z79.01 Long term (current) use of anticoagulants
CPT/HCPCS: 0241U; 36415; 71045; 80053; 81001; 83605; 83735; 83880; 84484; 85025; 87086; 96360; 99285-25; J7040